=== PATIENT | female | born 1975 | race Caucasian/White ===

== ENCOUNTER 2020-06-25 12:24 | Outpatient (REF) | payer OTHER, SELFPAY ==
[2020-06-25 14:00] LABS: COVID-19 Test Negative (Negative); IDNOW Serial# 55D5AD1C
== END 2020-06-25 12:25 | disposition home or self-care (01) ==
LOC: HO.EMPCOV 12:24
PROVIDERS: Visit Provider Internal Medicine
DX: Z20.828 Contact with and (suspected) exposure to other viral communicable diseases (principal)
CPT/HCPCS: 87635; C9803

== ENCOUNTER 2020-07-24 14:32 | Outpatient (REF) | payer OTHER, SELFPAY ==
--- NOTE | 2020-07-24 14:38 | XR_ITS ---
EXAMINATION: CR X-RAY LUMBOSACRAL SPINE 3 VIEW CLINICAL INFORMATION: Low back pain. COMPARISON: None TECHNIQUE: 3 views each of the lumbar and sacrococcygeal spine were obtained. FINDINGS: There is normal lumbar lordosis and spinal alignment. Mild disc space narrowing is seen at L4-L5 and L5-S1. There is normal sacrococcygeal curvature. No acute fracture is seen. The soft tissues are unremarkable. Surgical clips overlie the upper abdomen. XR/XR lumbar spine 2-3V IMPRESSION: L4-L5 and L5-S1 mild disc space narrowing without acute abnormality.
--- NOTE | 2020-07-24 14:38 | XR_ITS ---
EXAMINATION: CR X-RAY LUMBOSACRAL SPINE 3 VIEW CLINICAL INFORMATION: Low back pain. COMPARISON: None TECHNIQUE: 3 views each of the lumbar and sacrococcygeal spine were obtained. FINDINGS: There is normal lumbar lordosis and spinal alignment. Mild disc space narrowing is seen at L4-L5 and L5-S1. There is normal sacrococcygeal curvature. No acute fracture is seen. The soft tissues are unremarkable. Surgical clips overlie the upper abdomen. XR/XR sacrum coccyx min 2V IMPRESSION: L4-L5 and L5-S1 mild disc space narrowing without acute abnormality.
== END 2020-07-24 14:33 | disposition home or self-care (01) ==
LOC: HO.HMGCX 14:32
PROVIDERS: PCP Nurse Practitioner Family; Visit Provider Nurse Practitioner Family
DX: M53.3 Sacrococcygeal disorders, not elsewhere classified (principal); M46.1 Sacroiliitis, not elsewhere classified; M54.5 Low back pain; Z91.81 History of falling
CPT/HCPCS: 72100; 72220

== ENCOUNTER → 2020-08-10 08:01 | Outpatient (BNVA) | payer OTHER, SELFPAY | PROVIDERS: PCP Nurse Practitioner Family; Visit Provider Advanced Practice Midwife | DX: Z76.89 Persons encountering health services in other specified circumstances (principal) ==

== ENCOUNTER 2020-11-05 15:34 | Emergency (ER) | payer OTHER, SELFPAY ==
--- NOTE | ~2020-11-05 | CT_ITS ---
EXAMINATION: CT MASTOID AREA CLINICAL INFORMATION: Left-sided posterior pain COMPARISON: None TECHNIQUE: 3 mm thin axial and reformatted 1.5 mm thin sagittal and coronal images of mastoid sinuses were obtained. DLP 164. FINDINGS: The mastoid sinuses are well-aerated and clear. There is small radiodense bone in the left posterior mastoid sinus, question 2 mm small osteoid osteoma There is normal symmetry of bilateral middle ears with intact middle ear ossicles and a intact scutum. The tympanic membrane are bilaterally intact. There is normal symmetry of bilateral internal auditory canal, semicircular canals and the cochlea. There is no sclerosis or osteopenia involving the internal ear. Bilateral external auditory canal is widely patent as well no soft tissue mass seen. Bilateral TM joints are symmetrical and normal. However there is subchondral cystic changes along the right mandibular condyle likely early degenerative changes. Visualized bilateral optic globes, optic nerve and the bony orbits are intact. The paranasal sinuses are well-aerated and clear. 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
[2020-11-05 18:07] VITALS: BP 144/99; PULSE 75; RESP 17; TEMP 36.6; O2SAT 100; BMI 29.0
[2020-11-05] MEDS: Cyclobenzaprine HCl 10 MG TABLET PO (18:42)
[2020-11-05] MEDS: Lidocaine 4 % Patch ADH..PATCH 1 PATCH TRANSDERMA (18:44)
[2020-11-05 19:01] LABS: MANUAL DIFF FLAG NO
[2020-11-05] MEDS: Ketorolac Tromethamine 30 MG/ML VIAL IVPUSH (19:05)
[2020-11-05 19:12] LABS: Basophils Percent Auto 0.2 % (0-2); Hematocrit 42.6 % (37-47); Hemoglobin 14.4 g/dl (12.0-16.0); Imm Gran Abs Auto 0.02 X10*3/uL (0.00-0.03); Imm Gran Pct Auto 0.3 % (0.0-0.4); Lymphocytes Absolute Auto 1.1 X10*3/uL (1.2-4.9); Lymphocytes Percent Auto 16.7 % (20-40); Mean Corpuscular HGB Conc 33.8 g/dl (31.0-35.0); Mean Corpuscular Volume 91.6 fL (80-98); Mean Platelet Volume 10.1 fL (9.4-12.3); Monocytes Absolute Auto 0.4 X10*3/uL (0.1-1.2); Monocytes Percent Auto 5.7 % (2-11); Neutrophils Absolute Auto 4.9 X10*3/uL (2.0-8.3); Neutrophils Percent Auto 77.1 % (45-73); Platelet Count 249 X10*3/uL (160-400); Red Blood Count 4.65 X10*6/uL (4.20-5.50); Red Cell Distribution Width 11.8 % (11.0-16.0); White Blood Count 6.3 X10*3/uL (4.8-10.8)
[2020-11-05 19:28] LABS: C Reactive Protein 0.12 mg/dL (< or = 0.50)
[2020-11-05 19:29] LABS: Alanine Aminotransferase 18 U/L (0-31); Albumin Level 4.5 g/dL (3.5-5.0); Alkaline Phosphatase 59 U/L (39-117); Anion Gap 15 (12-20); Aspartate Amino Transferase 21 U/L (5-31); Bilirubin Total 0.6 mg/dL (0.0-1.0); Blood Urea Nitrogen 14 mg/dL (9-16); Calcium 9.9 mg/dL (8.4-10.2); Carbon Dioxide 27 mmol/L (22-29); Chloride 104 mmol/L (96-108); Creatinine Clr Calc Pharmacy 115.1; Estimated Glomerular Filt Rate > 60; Glucose Random 105 mg/dL (60-115); Potassium 4.1 mmol/L (3.3-5.1); Sodium 142 mmol/L (135-145); Total Protein 7.5 g/dL (6.5-8.0)
--- NOTE | 2020-11-05 19:50 | ED_ITS ---
HPI - General Adult General Chief complaint: General Medical Stated complaint: ?Ear infection Time Seen by Provider: 11/05/20 18:09 Source: patient Mode of arrival: ambulatory Limitations: no limitations History of Present Illness HPI narrative: Continued left ear pain treated for otitis externa was given doxycycline and ear drops as well as prednisone. States continued to have pain in the left ear some on the left side neck as well. States the ear was previously swollen and red however is not anymore and had di scharge previously which she no longer has. Onset (ago): day(s) Radiation: non-radiation Severity: moderate Quality: aching Pain Consistency: constant Relieving factors: none Exacerbating factors: none Associated symptoms: denies other symptoms Treatments prior to arrival: other (Initially had doxycycline which was switched to azithromycin she is on day 3 of this) Related Data Previous Rx's Medication Instructions Recorded atorvastatin 10 mg tablet 10 mg PO DAILY 90 Days #90 tab 05/18/20 omeprazole 20 mg capsule,delayed 20 mg PO DAILY 90 Days #90 cap 06/04/20 release cholestyramine-aspartame 4 gram 4 g PO DAILY 30 Days #231 g 06/26/20 oral powder azithromycin 250 mg tablet 250 mg PO .COMPLEX 5 Days #6 tab 06/27/20 cyclobenzaprine 10 mg tablet 10 mg PO BID PRN 7 Days #14 tab 07/24/20 cholecalciferol (vitamin D3) 50 50 mcg PO DAILY #60 tab 08/03/20 mcg (2,000 unit) tablet sumatriptan succinate 4 mg/0.5 mL 4 mg SUBCUT BID PRN 30 Days #2 ml 08/08/20 subcutaneous pen injector cholestyramine-aspartame 4 gram 1 ea PO DAILY #60 packet 08/22/20 oral powder for susp in a packet doxycycline hyclate 100 mg capsule 100 mg PO BID 7 Days #14 cap 11/01/20 ofloxacin 0.3 % ear drops 10 drp OTIC (EARS) DAILY 7 Days 11/01/20 #10 ml prednisone 20 mg tablet 40 mg PO DAILY 5 Days #10 tab 11/01/20 azithromycin 250 mg tablet See Rx Instructions PO .COMPLEX #6 11/03/20 tab cyclobenzaprine 5 mg PO TID PRN #14 tab 11/05/20 ibuprofen 800 mg PO Q8H PRN #30 tab 04/12/21 Allergies Allergy/AdvReac Type Severity Reaction Status Date / Time caffeine [From CAFERGOT] Allergy Unknown VOMITING Verified 11/05/20 18:41 cetirizine [From ZYRTEC] AdvReac Unknown RAGE Verified 11/05/20 18:41 ergotamine [Cafergot] AdvReac Unknown nausea and Verified 11/05/20 18:41 vomiting meperidine [Demerol] AdvReac Unknown nausea and Verified 11/05/20 18:41 vomiting From CAFERGOT Allergy Unknown VOMITING Uncoded 04/12/20 15:02 From DEMEROL Allergy Unknown VOMITING Uncoded 04/12/20 15:02 Review of Systems Review of Systems: Constitutional: No Weight loss, No Fever, No Chills, No Night Sweats, No Fatigue, No Malaise ENT/Mouth: No Hearing loss, + Ear Pain, No Nasal Congestion, No Sinus Pain, No Hoarseness, No sore throat, No Rhinorrhea, No Swallowing Difficulty Eyes: No Eye Pain, No Swelling, No Redness, No Foreign Body, No Discharge, No Vision Changes Cardiovascular: No Chest Pain, No SOB, No Dyspnea on Exertion, No Orthopnea, No Edema, No Palpitations Respiratory: No Cough, No Sputum, No Wheezing, No Dyspnea Gastrointestinal: No Nausea, No Vomiting, No Diarrhea, No Constipation, No abdominal Pain, No Hematochezia, No Melena Genitourinary: No Dysuria, No Urinary Frequency, No Hematuria, No Urinary Incontinence, No Urgency, No Flank Pain, No Urinary Flow Changes, No Hesitancy Musculoskeletal: No joint pain, No Myalgias, No Joint Swelling Skin: No Skin Lesions, No rash Neuro: No Weakness, No Numbness, No Paresthesias, No Loss of Consciousness, No Dizziness, No Headache Psych: No Anxiety/Panic, No Depression, No SI/HI/AH/VH, No Social Issues Heme/Lymph: No Bruising, No Bleeding,No Lymphadenopathy Endocrine: No Polyuria, No Polydipsia, No Temperature Intolerance Yes all other systems are reviewed and are negative [facility] Past Medical History Medical History Hx of migraine headaches Surgical History H/O eye surgery History of endometrial ablation History of gastric surgery History of mandibular surgery History of placement of ear tubes Hx of adenoidectomy Hx of cholecystectomy Hx of tonsillectomy Family History Family History Father Non-Hodgkin lymphoma CVD (cardiovascular disease) Mother Alzheimer disease Sister History of breast cancer Social History Social History Alcohol intake: current Alcohol intake frequency: holidays/special occasions only Smoking Status: Never smoker Advance Directives: No Advance Directives Information Provided: No Sexual orientation: Straight/Heterosexual Physical Exam Vital Signs: Vital Signs: Last Vital Signs Temp 97.7 F 11/05/20 20:47 Pulse 63 11/05/20 20:47 Resp 16 11/05/20 20:47 BP 130/71 11/05/20 20:47 Pulse Ox 100 11/05/20 20:47 Body Mass Index 29.0 Reviewed Const: General: cooperative and healthy appearing; No acute distress or intoxicated appearing Nutritional Appearance: average body habitus Orientation/consciousness: patient oriented x3 HENMT: Head: Yes normal to inspection Ears: hearing grossly normal bilaterally, external ears normal, TM's normal bilaterally and mastoid abnormal (Very slight in prevention of the left mastoid, no rash or erythema) General nose exam: Normal external nose present Eyes: General: appearance normal, both eyes and all related structures Visual Armas: normal visual armas by confrontation Neck: Neck: Yes normal visual inspection, No positive Brudzinski's sign, No positive Kernig's sign and Yes tender (She has point tenderness over the paraspinous muscle cervical region.) Thyroid: Thyroid normal Chest: Chest palpation & inspection: normal inspection of the chest Resp: Effort & Inspection: normal respiratory effort Auscultation: clear to auscultation bilaterally Cardio: Jugular venous distension: no JVD Rhythm: regular rhythm Heart sounds: S1 normal heart sound present and S2 normal heart sound present GI: Inspection: Yes normal to inspection Percussion: Yes normal to percussion Auscultation: normal bowel sounds : General: Yes no CVA tenderness Back/Spine/Pelvis: Back: no CVA tenderness Skin: General skin exam: no rashes or lesions noted Neuro: General: patient oriented x3 Extrem: General: Yes normal to inspection Course Course Course Narrative: Pain seems more musculoskeletal in etiology given the recent treatment of otitis externa and slight tender to palpation over the mastoid ICA imaging was obtained and there is no mastoiditis. Labs overall reassuring., CRP negative, ESR negative. Will discharge home with muscle relaxant and NSAID with clear return follow-up precautions. Patient verbalized standing stable for discharge. 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 She will follow-up on outpatient basis for this Medical Decision Making Lab Data Result diagrams: 11/05/20 18:55 11/05/20 18:55 Labs: Lab Results 11/05/20 11/05/20 11/05/20 Range/Units 18:55 18:55 18:55 WBC 6.3 (4.8-10.8) X10*3/uL RBC 4.65 (4.20-5.50) X10*6/uL Hgb 14.4 (12.0-16.0) g/dl Hct 42.6 (37-47) % MCV 91.6 (80-98) fL MCH 31.0 (27.0-33.0) pg MCHC 33.8 (31.0-35.0) g/dl RDW 11.8 (11.0-16.0) % Plt Count 249 (160-400) X10*3/uL MPV 10.1 (9.4-12.3) fL Immature Gran % (Auto) 0.3 (0.0-0.4) % Neut % (Auto) 77.1 H (45-73) % Lymph % (Auto) 16.7 L (20-40) % [place] % (Auto) 5.7 (2-11) % Eos % (Auto) 0.0 (0-4) % Baso % (Auto) 0.2 (0-2) % Lymph # (Auto) 1.1 L (1.2-4.9) X10*3/uL [place] # (Auto) 0.4 (0.1-1.2) X10*3/uL Eos # (Auto) 0.0 (0.0-0.4) X10*3/uL Baso # (Auto) 0.0 (0.0-0.2) X10*3/uL Abs Immat Gran (auto) 0.02 (0.00-0.03) X10*3/uL Absolute Neuts (auto) 4.9 (2.0-8.3) X10*3/uL Absolute Nucleated RBC 0.000 (0.0-0.012) X10*3/uL Nucleated RBC % (auto) 0.0 (0.0-0.2) /100WBC ESR 6 (0-20) MM/HR Sodium (135-145) mmol/L Potassium (3.3-5.1) mmol/L Chloride (96-108) mmol/L Carbon Dioxide (22-29) mmol/L Anion Gap (12-20) BUN (9-16) mg/dL Creatinine (0.5-1.4) mg/dL Estim Creat Clear Calc Estimated GFR Random Glucose (60-115) mg/dL Calcium (8.4-10.2) mg/dL Total Bilirubin (0.0-1.0) mg/dL AST (5-31) U/L ALT (0-31) U/L Alkaline Phosphatase (39-117) U/L C-Reactive Protein 0.12 (< or = 0.50) mg/dL Total Protein (6.5-8.0) g/dL Albumin (3.5-5.0) g/dL COVID-19 (GEMMA) (Negative) COVID-19 Clin Com 11/05/20 11/05/20 Range/Units 18:55 20:45 WBC (4.8-10.8) X10*3/uL RBC (4.20-5.50) X10*6/uL Hgb (12.0-16.0) g/dl Hct (37-47) % MCV (80-98) fL MCH (27.0-33.0) pg MCHC (31.0-35.0) g/dl RDW (11.0-16.0) % Plt Count (160-400) X10*3/uL MPV (9.4-12.3) fL Immature Gran % (Auto) (0.0-0.4) % Neut % (Auto) (45-73) % Lymph % (Auto) (20-40) % [place] % (Auto) (2-11) % Eos % (Auto) (0-4) % Baso % (Auto) (0-2) % Lymph # (Auto) (1.2-4.9) X10*3/uL [place] # (Auto) (0.1-1.2) X10*3/uL Eos # (Auto) (0.0-0.4) X10*3/uL Baso # (Auto) (0.0-0.2) X10*3/uL Abs Immat Gran (auto) (0.00-0.03) X10*3/uL Absolute Neuts (auto) (2.0-8.3) X10*3/uL Absolute Nucleated RBC (0.0-0.012) X10*3/uL Nucleated RBC % (auto) (0.0-0.2) /100WBC ESR (0-20) MM/HR Sodium 142 (135-145) mmol/L Potassium 4.1 (3.3-5.1) mmol/L Chloride 104 (96-108) mmol/L Carbon Dioxide 27 (22-29) mmol/L Anion Gap 15 (12-20) BUN 14 (9-16) mg/dL Creatinine 0.68 (0.5-1.4) mg/dL Estim Creat Clear Calc 115.1 Estimated GFR > 60 Random Glucose 105 (60-115) mg/dL Calcium 9.9 (8.4-10.2) mg/dL Total Bilirubin 0.6 (0.0-1.0) mg/dL AST 21 (5-31) U/L ALT 18 (0-31) U/L Alkaline Phosphatase 59 (39-117) U/L C-Reactive Protein (< or = 0.50) mg/dL Total Protein 7.5 (6.5-8.0) g/dL Albumin 4.5 (3.5-5.0) g/dL COVID-19 (GEMMA) Negative (Negative) COVID-19 Clin Com See Note Imaging Data Head/mastoid CT: Radiologist's impression: [address] [id number] Scan ReportSigned Patient: Geena Malone LMR#: [id number]: [id number]:[id number]/Sex: 44 / FADM Date: 11/05/20Loc: HO.EDAttending Dr: Ordering Physician: Robin Smalls NP Date of Service: 11/05/20 Procedure(s): CT mastoid Accession Number(s): [id number] cc: 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 DLP 164. FINDINGS: The mastoid sinuses are well-aerated and clear. There is small radiodense bone in the left posterior mastoid sinus, question 2 mm small osteoid osteoma There is normal symmetry of bilateral middle ears with intact middle ear ossicles and a intact scutum. The tympanic membrane are bilaterally intact. There is normal symmetry of bilateral internal auditory canal, semicircular canals and the cochlea. There is no sclerosis or osteopenia involving the internal ear. Bilateral external auditory canal is widely patent as well no soft tissue mass seen. Bilateral TM joints are symmetrical and normal. However there is subchondral cystic changes along the right mandibular condyle likely early degenerative changes. Visualized bilateral optic globes, optic nerve and the bony orbits are intact. The paranasal sinuses are well-aerated and clear. 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 Dictated By:NIMA HAMMOND MDSigned By:<Electronically signed by NIMA HAMMOND MD in OV>11/05/20 2100 DD/ 1809TD/TT: Relay Record Clerk: [facility] [place], [place] Discharge Plan Discharge Clinical Impression: Acute otalgia Patient Disposition: Home, Self-Care Instructions: Earache (ED) Additional Instructions: The pain your likely having is musculoskeletal related There is no signs of infection The previous ear infection that had now resolved you could certainly could complete the course of the azithromycin antibiotic Warm compresses Anti-inflammatory medication as prescribed Muscle relaxants prescribed Return if any concerns including worsening headache, neck pain, fever, chest pain, shortness of breath or any other concerning symptoms Otherwise a primary care doctor as discussed Thank you Prescriptions: New ibuprofen 800 mg tablet 800 mg PO Q8H PRN (Reason: pain) Qty: 30 RF: 0 cyclobenzaprine 5 mg tablet 5 mg PO TID PRN (Reason: muscle spasm) Qty: 14 RF: 0 No Action atorvastatin 10 mg tablet 10 mg PO DAILY 90 Days Qty: 90 RF: 2 omeprazole 20 mg capsule,delayed release(DR/EC) 20 mg PO DAILY 90 Days Qty: 90 RF: 2 Prevalite 4 gram powder 4 g PO DAILY 30 Days Qty: 231 RF: 8 azithromycin 250 mg tablet 250 mg PO .COMPLEX 5 Days Qty: 6 RF: 0 cholecalciferol (vitamin D3) 50 mcg (2,000 unit) tablet 50 mcg PO DAILY Qty: 60 RF: 3 sumatriptan succinate 4 mg/0.5 mL pen injector 4 mg subcut BID PRN (Reason: migraine headache) 30 Days Qty: 2 RF: 3 Prevalite 4 gram powder in packet 1 ea PO DAILY Qty: 60 RF: 6 azithromycin 250 mg tablet See Rx Instructions PO .COMPLEX Qty: 6 RF: 0 cyclobenzaprine 10 mg tablet 10 mg PO BID PRN (Reason: muscle spasm) 7 Days Qty: 14 RF: 0 doxycycline hyclate 100 mg capsule 100 mg PO BID 7 Days Qty: 14 RF: 0 prednisone 20 mg tablet 40 mg PO DAILY 5 Days Qty: 10 RF: 0 ofloxacin 0.3 % drops 10 drp otic (ears) DAILY 7 Days Qty: 10 RF: 0
[2020-11-05 19:57] LABS: Erythrocyte Sedimentation Rate 6 MM/HR (0-20)
[2020-11-05] MEDS: oxyCODONE HCl Immed Release 5 MG TABLET PO (20:43)
[2020-11-05 20:47] VITALS: BP 130/71; PULSE 63; RESP 16; TEMP 36.5; O2SAT 100
[2020-11-05 21:11] LABS: COVID-19 Test Negative (Negative); IDNOW Serial# 9DD0AD1C
== END 2020-11-05 22:33 | disposition home or self-care (01) ==
PROVIDERS: Nurse Practitioner Primary Care; Emergency Provider Emergency Medicine; PCP Nurse Practitioner Family
DX: H92.02 Otalgia, left ear (principal); H60.92 Unspecified otitis externa, left ear; Z20.822 Contact with and (suspected) exposure to COVID-19
CPT/HCPCS: 36415; 70481; 80053; 85025; 85652; 86140; 87635; 96372; 96374; 96375; 99284; J1885

== ENCOUNTER 2020-11-23 07:23 | Outpatient (REF) | payer OTHER, SELFPAY ==
--- NOTE | ~2020-11-23 | MM_ITS ---
EXAMINATION: MM SCREENING DIGITAL BREAST TOMOSYNTHESIS, BILATERAL CLINICAL INFORMATION: Screening. Asymptomatic. The lifetime risk of breast cancer based on the Tyrer-Cuzick Model is 8%. COMPARISON: Mammography: 09/08/2019, 09/02/2018, 12/08/2016 TECHNIQUE: Digital breast tomosynthesis is performed in both the craniocaudal and mediolateral oblique views along with computer-aided detection (CAD). Synthesized 2D images are generated from the tomosynthesis. FINDINGS: There are scattered areas of fibroglandular density (ACR BI-RADS breast composition Category b). There are no significant masses, abnormal calcifications, or other abnormalities. Parenchymal pattern is similar to prior exams. The axilla and skin contours are unremarkable. MM/MM tomosynthesis screening BI IMPRESSION: No mammographic evidence of malignancy. ASSESSMENT: BI-RADS 1: Negative RECOMMENDATION: Routine annual mammography screening. This patient's information was entered into a reminder system with a target due date for their next mammogram.
== END 2020-11-23 07:24 | disposition home or self-care (01) ==
LOC: HO.MAMMO 07:23
PROVIDERS: PCP Nurse Practitioner Family; Visit Provider Nurse Practitioner Family
DX: Z12.31 Encounter for screening mammogram for malignant neoplasm of breast (principal)
CPT/HCPCS: 77063; 77067

== ENCOUNTER 2021-03-29 12:01 | Outpatient (REF) | payer OTHER, SELFPAY ==
--- NOTE | ~2021-03-29 | XR_ITS ---
EXAMINATION: XR CERVICAL SPINE CLINICAL INFORMATION: Neck pain COMPARISON: None TECHNIQUE: 3 views of the cervical spine were obtained. FINDINGS: Bone alignment is normal. No fracture or dislocation is seen. Disc spaces are normal. Prevertebral soft tissues are normal. XR/XR cervical spine 3V IMPRESSION: Unremarkable examination.
== END 2021-03-29 12:02 | disposition home or self-care (01) ==
LOC: HO.HMGCX 12:01
PROVIDERS: PCP Nurse Practitioner Family; Visit Provider Nurse Practitioner Family
DX: Z13.89 Encounter for screening for other disorder (principal)
CPT/HCPCS: 72040

== ENCOUNTER 2021-06-25 14:00 | Outpatient (RCR) | payer OTHER, SELFPAY ==
--- NOTE | 2021-04-02 07:23 | MHC.PT.EP ---
[facility] [place] Office [place] Office [place] Office [address] Osman Romeo [address] [phone] F: [phone] F: [phone] F: [phone] F: [phone] Physical Therapy Plan of Care Date of Evaluation: Date of Surgery: n/a Diagnosis: cervicalgia, b/l shoulder pain Assessment: Patient is a 45 year old R handed female who presents with s/s consistent with neck and shoulder pain. 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 Patient past medical history is fairly unremarkable but does include jaw surgery 30 years ago. Current impairments include pain, posture. ROM, strength, activity tolerance and functional mobility. Functional limitations include decreased ability to sit, sleep, lift, carry, and perform weight bearing activities.. Patient is motivated with good rehab potential. Skilled PT will address impairments and functional limitations in order to achieve goals. Frequency and Duration: The patient will be seen 2x/week for 5 weeks Short Term Goals: I with HEP - 2 weeks Reduce TTP and pain with ADLs , 2/10 max - 3 weeks min pec tightness - 3 weeks [facility] Goals: pain free work day, able to sleep through night without n/t - 5 weeks TTP absent in t-spine, no LS/UT TP - 5 weeks NPDI 12% or less - 5 weeks Treatment Plan: Modalities to reduce pain, spasms and effusion. Manual therapy to restore motion and function. Therapeutic exercise to improve strength and flexibility. Neuromuscular re-education for posture and balance. Therapeutic activities to return to functional activities of daily living. Electronically signed by: Todd Daniel, PT Please sign and return to therapist. Thank you for your referral.
--- NOTE | 2021-08-16 08:05 | MHC.PT.DC ---
[facility] [place] [facility] [place] Office [place] Office [address] Osman Romeo [address] [phone] F: [phone] F: [phone] F: [phone] F: [phone] Physical Therapy Discharge Report Diagnosis: cervicalgia, b/l shoulder pain Date of Surgery: n/a Date of Evaluation: 03/28/21 Date of Discharge: 06/27/21 Treatments to Date: 18 Cancellations to Date: 0 No Shows to Date: 0 Discharge Status: Discharge Summary: Pt has good understanding of impairments and limitations and how to proceed with HEP. She has improved postural awareness but still with daily discomfort. We will d/c to HEP at this time. Electronically signed by: Todd Daniel, PT Please sign and return to therapist. Thank you for your referral.
== END 2021-06-27 08:00 | disposition home or self-care (01) ==
LOC: HO.PTCHIC 14:00
PROVIDERS: PCP Nurse Practitioner Family; Visit Provider Nurse Practitioner Family
DX: M54.2 Cervicalgia (principal); M25.511 Pain in right shoulder; M25.512 Pain in left shoulder
CPT/HCPCS: 97110; 97140; 97161

== ENCOUNTER 2021-08-16 08:24 | Outpatient (REF) | payer OTHER, SELFPAY ==
[2021-08-20 12:56] LABS: HPV mRNA E6/E7 rflx Not Detected (Not Detected)
== END 2021-08-16 08:25 | disposition home or self-care (01) ==
LOC: HO.LAB 08:24
PROVIDERS: PCP Nurse Practitioner Family; Visit Provider Advanced Practice Midwife
DX: Z01.419 Encounter for gynecological examination (general) (routine) without abnormal findings (principal); Z11.51 Encounter for screening for human papillomavirus (HPV)
CPT/HCPCS: 87624; 88142

== ENCOUNTER 2021-09-05 13:00 | Outpatient (REF) | payer OTHER, SELFPAY ==
--- NOTE | ~2021-09-05 | XR_ITS ---
EXAMINATION: XR KNEE, LEFT CLINICAL INFORMATION: Pain in the left knee COMPARISON: None TECHNIQUE: Four views of the left knee. FINDINGS: No fracture or subluxation. Compartmental joint spaces are maintained. No joint effusion. The soft tissues are unremarkable. XR/XR knee LT 4V IMPRESSION: Normal left knee.
== END 2021-09-05 13:01 | disposition home or self-care (01) ==
LOC: HO.HMGCX 13:00
PROVIDERS: PCP Nurse Practitioner Family; Visit Provider Nurse Practitioner Family
DX: M25.562 Pain in left knee (principal)
CPT/HCPCS: 73564

== ENCOUNTER 2021-09-23 13:40 | Outpatient (REF) | payer OTHER, SELFPAY ==
--- NOTE | ~2021-09-23 | XR_ITS ---
EXAMINATION: XR ANKLE, LEFT CLINICAL INFORMATION: Pain. COMPARISON: None TECHNIQUE: AP, lateral, and mortise views of the left ankle. FINDINGS: There is no visible acute fracture, dislocation or subluxation seen. The ankle mortise and subtalar joints appear normal. There is a small calcaneal heel enthesophyte. The soft tissues are normal. XR/XR ankle LT min 3V IMPRESSION: Small calcaneal heel enthesophyte. No visible acute fracture or dislocation seen.
== END 2021-09-23 13:41 | disposition home or self-care (01) ==
LOC: HO.HMGCX 13:40
PROVIDERS: PCP Nurse Practitioner Family; Visit Provider Nurse Practitioner Family
DX: M25.572 Pain in left ankle and joints of left foot (principal)
CPT/HCPCS: 73610

== ENCOUNTER 2021-10-16 18:30 | Outpatient (REF) | payer OTHER, SELFPAY ==
--- NOTE | ~2021-10-16 | MR_ITS ---
EXAMINATION: MR KNEE WITHOUT CONTRAST, LEFT CLINICAL INFORMATION: Sprain of posterior cruciate ligament COMPARISON: X-ray the left knee August 2021 TECHNIQUE: MRI of the knee without contrast was performed using routine sequences on a high-field scanner. FINDINGS: MENISCI: Medial Meniscus: Intact Lateral Meniscus: Intact LIGAMENTS: Cruciate: Intact Collateral: Intact EXTENSOR MECHANISM: Intact ARTICULAR CARTILAGE/BONE: Patellofemoral Compartment: There is some minimal superficial fissuring and cartilage heterogeneity throughout the patella. The trochlear cartilage is normal. Overall mild patellofemoral arthrosis Medial Compartment: Normal Lateral Compartment: Normal JOINT FLUID AND BURSAE: Normal MR/MR knee LT wo con IMPRESSION: Mild patellofemoral arthrosis Posterior cruciate ligament intact.
--- NOTE | ~2021-10-16 | MR_ITS ---
EXAMINATION: MRI ANKLE WITHOUT CONTRAST, LEFT CLINICAL INFORMATION: Pain. Patient reports injury 08/26/2021, medial and lateral pain. COMPARISON: X-ray 09/23/2021 TECHNIQUE: MRI of the ankle without contrast is performed in a 1.5 Nidhi high-field scanner. FINDINGS: BONE/JOINTS: No evidence of acute fracture. No suspicious marrow signal changes. Small cyst in the posterior calcaneus near the Achilles tendon insertion site. No talar dome osteochondral lesion. MUSCLES/TENDONS: Medial flexor, peroneal, extensor tendons are intact. LIGAMENTS: Sprain of the proximal ATFL. Posterior talofibular, tibiofibular, calcaneofibular ligaments intact. Mild sprain anterior deep fibers deltoid ligament. ACHILLES TENDON: Intact. PLANTAR FASCIA: Intact. SINUS TARSI: Normal signal. TARSAL TUNNEL : Unremarkable MR/MR ankle LT wo con IMPRESSION: 1. No evidence of acute osseous abnormality. 2. Sprain of the proximal anterior talofibular ligament. Mild sprain anterior deep fibers deltoid ligament.
== END 2021-10-16 18:31 | disposition home or self-care (01) ==
LOC: HO.MRI 18:30
PROVIDERS: Visit Provider Nurse Practitioner Family
DX: M25.572 Pain in left ankle and joints of left foot (principal); M25.562 Pain in left knee; S83.529A Sprain of posterior cruciate ligament of unspecified knee, initial encounter
CPT/HCPCS: 73721

== ENCOUNTER 2021-11-19 14:00 | Outpatient (RCR) | payer OTHER, SELFPAY ==
--- NOTE | 2021-10-08 14:18 | MHC.PT.EP ---
[facility] [place] Office [place] Office [place] Office [address] Osman Romeo [address] [phone] F: [phone] F: [phone] F: [phone] F: [phone] Physical Therapy Plan of Care Date of Evaluation: Date of Surgery: Diagnosis: This is a 45 yo female presenting to skilled PT with a script for pain in L knee. Assessment: This is a 45 yo female presenting to skilled PT with a script for pain in L knee. Geena reports tripping in her kitchen on 08/26. When she tripped she fell directly onto her patella tendon (tile floor). She also reports ankle symptoms which may have been landing in PF and INV. Today pain is located at the L fib head, patella tendon (both of which are tender to touch), post knee (tight), and at the lateral ankle (which has wrapped around the lateral malloli but has progressed medially and anteriorly as well). She also reports an incident when stepping out of bed where she then heard a pop in her ankle and had bruising medially. Her ankle symptoms are burning and constant in nature. She also reports some instability in the knee as well. Assessment reveals pain that ranges up to an 8/10, pain is constant and burning at the ankle. She demos decreased hamstring and ankle ROM, decreased ankle strength, impaired gait pattern as noted in eval, impaired joint mobility at fibular head, forefoot and lateral ankle, TTP throughout patella tendon, fibular head (pain improved with posterior glide) and hamstrings as well as gross functional decline with ambulating, stairs, standing and pain tolerance. She is a good candidate for skilled PT 2x/wk for 5 wks, she is getting an MRI of the knee but would benefit from imaging of the ankle due to pain and injury date. Frequency and Duration: The patient will be seen 2x/wk for 5wks Short Term Goals: I in HEP Improve nonpainful ankle ROM by 10 degs [facility] Goals: Improve ankle strength in all directions to at least 4/5 Normalize gait pattern without compensatory movements Report no more than 2/10 pain at the worst with pain no longer constant Normalize ankle ROM Treatment Plan: Modalities to reduce pain, spasms and effusion. Manual therapy to restore motion and function. Therapeutic exercise to improve strength and flexibility. Neuromuscular re-education for posture and balance. Therapeutic activities to return to functional activities of daily living. Electronically signed by: Clarisse Sool PT Please sign and return to therapist. Thank you for your referral.
--- NOTE | 2022-01-03 07:49 | MHC.PT.DC ---
[facility] [place] Office [place] Office [place] Office [address] Osman Romeo [address] [phone] F: [phone] F: [phone] F: [phone] F: [phone] Physical Therapy Discharge Report Diagnosis: This is a 45 yo female presenting to skilled PT with a script for pain in L knee. Date of Surgery: Date of Evaluation: 10/08/21 Date of Discharge: 01/03/22 Treatments to Date: 10 Cancellations to Date: 0 No Shows to Date: 0 Discharge Status: Achieved Goals Improved Function Independent with HEP Patient Elected to Stop Discharge Summary: Patient came to 10 visits. Within this time frame, gait improved, ROM improved as did strength. She was curing oven tender to palpate at fascia per last tx note but felt ready for DC and was I with HEP. She reported improved pain, joint mobility and function. She has met her goals and is ready for DC to HEP Electronically signed by: Clarisse Solo, PT Please sign and return to therapist. Thank you for your referral.
== END 2022-01-03 07:49 | disposition home or self-care (01) ==
LOC: HO.PTCHIC 14:00
PROVIDERS: PCP Nurse Practitioner Family; Visit Provider Nurse Practitioner Family
DX: M25.562 Pain in left knee (principal); M25.572 Pain in left ankle and joints of left foot; M70.52 Other bursitis of knee, left knee; S83.522D Sprain of posterior cruciate ligament of left knee, subsequent encounter
CPT/HCPCS: 97110; 97140; 97162

== ENCOUNTER 2021-12-10 08:29 | Outpatient (REF) | payer OTHER, SELFPAY ==
--- NOTE | ~2021-12-10 | XR_ITS ---
EXAMINATION: XR CHEST CLINICAL INFORMATION: Covid infection COMPARISON: Previous chest CT February 2020 and chest x-ray February 2020 TECHNIQUE: 2 views of the chest were obtained. FINDINGS: No significant abnormality is noted involving the heart, lungs, mediastinum, bony thorax or soft tissues. XR/XR chest 2V IMPRESSION: Unremarkable examination.
[2021-12-10 11:28] LABS: MANUAL DIFF FLAG NO
[2021-12-10 11:33] LABS: Basophils Percent Auto 0.8 % (0-2); Eosinophils Absolute Auto 0.1 X10*3/uL (0.0-0.4); Eosinophils Percent Auto 2.6 % (0-4); Hemoglobin 13.5 g/dl (12.0-16.0); Imm Gran Abs Auto 0.02 X10*3/uL (0.00-0.03); Imm Gran Pct Auto 0.4 % (0.0-0.4); Lymphocytes Absolute Auto 1.7 X10*3/uL (1.2-4.9); Lymphocytes Percent Auto 31.1 % (20-40); Mean Corpuscular HGB Conc 32.9 g/dl (31.0-35.0); Mean Corpuscular Hemoglobin 30.5 pg (27.0-33.0); Mean Corpuscular Volume 92.8 fL (80.0-98.0); Mean Platelet Volume 10.4 fL (9.4-12.3); Monocytes Absolute Auto 0.7 X10*3/uL (0.1-1.2); Monocytes Percent Auto 12.5 % (2-11); Neutrophils Absolute Auto 2.8 x10*3/uL (2.0-8.3); Neutrophils Percent Auto 52.6 % (45-73); Platelet Count 239 X10*3/uL (160-400); Red Blood Count 4.42 X10*6/uL (4.20-5.50); Red Cell Distribution Width 12.1 % (11.0-16.0); White Blood Count 5.3 X10*3/uL (4.8-10.8)
[2021-12-10 11:49] LABS: Alanine Aminotransferase 22 U/L (0-31); Alkaline Phosphatase 81 U/L (39-117); Anion Gap 13 (12-20); Aspartate Amino Transferase 25 U/L (5-31); Bilirubin Total 0.7 mg/dL (0.0-1.0); Blood Urea Nitrogen 11 mg/dL (9-16); Calcium 9.6 mg/dL (8.4-10.2); Carbon Dioxide 28 mmol/L (22-29); Chloride 104 mmol/L (96-108); Estimated Glomerular Filt Rate > 60; Glucose Random 91 mg/dL (60-115); Potassium 4.6 mmol/L (3.3-5.1); Sodium 140 mmol/L (135-145); Total Protein 7.1 g/dL (6.5-8.0)
[2021-12-10 12:13] LABS: TSH reflex Free T4 3.66 uIU/mL (0.32-4.0)
== END 2021-12-10 08:30 | disposition home or self-care (01) ==
LOC: HO.HMGCLDS 08:29
PROVIDERS: Visit Provider Nurse Practitioner Family
DX: U07.1 COVID-19 (principal)
CPT/HCPCS: 36415; 71046; 80053; 84443; 85025

== ENCOUNTER 2022-01-01 11:37 | Outpatient (REF) | payer OTHER, SELFPAY ==
--- NOTE | ~2022-01-01 | MM_ITS ---
EXAMINATION: MM SCREENING DIGITAL BREAST TOMOSYNTHESIS, BILATERAL CLINICAL INFORMATION: Screening. Asymptomatic. The lifetime risk of breast cancer based on the Tyrer-Cuzick Model is 12%. COMPARISON: Mammography: November 23, 2020 and studies dating back to December 08, 2016 TECHNIQUE: Digital breast tomosynthesis is performed in both the craniocaudal and mediolateral oblique views along with computer-aided detection (CAD). Synthesized 2D images are generated from the tomosynthesis. FINDINGS: There are scattered areas of fibroglandular density (ACR BI-RADS breast composition Category b). There are no significant masses, abnormal calcifications, or other abnormalities. MM/MM tomosynthesis screening BI IMPRESSION: There are no significant changes from prior study. ASSESSMENT: BI-RADS 1: Negative RECOMMENDATION: Routine annual mammography screening. This patient's information was entered into a reminder system with a target due date for their next mammogram.
== END 2022-01-01 11:38 | disposition home or self-care (01) ==
LOC: HO.MAMMO 11:37
PROVIDERS: Visit Provider Nurse Practitioner Family
DX: Z12.31 Encounter for screening mammogram for malignant neoplasm of breast (principal)
CPT/HCPCS: 77063; 77067

== ENCOUNTER 2022-03-20 06:49 | Outpatient (REF) | payer OTHER, SELFPAY ==
[2022-03-20 11:21] LABS: MANUAL DIFF FLAG NO
[2022-03-20 11:26] LABS: Basophils Percent Auto 0.8 % (0-2); Eosinophils Absolute Auto 0.1 X10*3/uL (0.0-0.4); Eosinophils Percent Auto 2.5 % (0-4); Hematocrit 40.1 % (37.0-47.0); Hemoglobin 13.1 g/dl (12.0-16.0); Imm Gran Abs Auto 0.01 X10*3/uL (0.00-0.03); Imm Gran Pct Auto 0.2 % (0.0-0.4); Lymphocytes Absolute Auto 1.6 X10*3/uL (1.2-4.9); Lymphocytes Percent Auto 33.8 % (20-40); Mean Corpuscular HGB Conc 32.7 g/dl (31.0-35.0); Mean Corpuscular Hemoglobin 30.6 pg (27.0-33.0); Mean Corpuscular Volume 93.7 fL (80.0-98.0); Mean Platelet Volume 10.5 fL (9.4-12.3); Monocytes Absolute Auto 0.7 X10*3/uL (0.1-1.2); Monocytes Percent Auto 13.9 % (2-11); Neutrophils Absolute Auto 2.3 x10*3/uL (2.0-8.3); Neutrophils Percent Auto 48.8 % (45-73); Platelet Count 217 X10*3/uL (160-400); Red Blood Count 4.28 X10*6/uL (4.20-5.50); Red Cell Distribution Width 12.3 % (11.0-16.0); White Blood Count 4.8 X10*3/uL (4.8-10.8)
[2022-03-20 12:06] LABS: Alanine Aminotransferase 26 U/L (0-31); Albumin Level 4.2 g/dL (3.5-5.0); Alkaline Phosphatase 73 U/L (39-117); Anion Gap 14 (12-20); Aspartate Amino Transferase 29 U/L (5-31); Bilirubin Total 0.6 mg/dL (0.0-1.0); Blood Urea Nitrogen 12 mg/dL (9-16); Calcium 9.2 mg/dL (8.4-10.2); Carbon Dioxide 29 mmol/L (22-29); Chloride 103 mmol/L (96-108); Cholesterol 279 mg/dL; Estimated Glomerular Filt Rate > 60; Glucose Fasting 85 mg/dL (60-99); HDL Cholesterol 94 mg/dL; LDL Cholesterol Calculated 165 mg/dl; Potassium 4.8 mmol/L (3.3-5.1); Sodium 141 mmol/L (135-145); TSH reflex Free T4 2.39 uIU/mL (0.32-4.0); Total Protein 7.1 g/dL (6.5-8.0); Triglycerides 102 mg/dL
[2022-03-20 13:46] LABS: Appearance Urine Clear; Color Urine Yellow; Glucose Urine UA Negative (Negative); Leukocyte Esterase Urine Negative (Negative); Nitrite Urine Negative (Negative); PH 5.5 (5.0-8.0); Specific Gravity - Urine 1.015 (1.005-1.025); Urine Blood Negative (Negative); Urine Ketones Negative (Negative); Urine Protein Negative (Neg-Trace)
== END 2022-03-20 06:50 | disposition home or self-care (01) ==
LOC: HO.HMGCLDS 06:49
PROVIDERS: PCP Nurse Practitioner Family; Visit Provider Nurse Practitioner Family
DX: Z00.00 Encounter for general adult medical examination without abnormal findings (principal)
CPT/HCPCS: 36415; 80053; 80061; 81003; 84443; 85025

== ENCOUNTER → 2022-08-22 08:08 | Outpatient (BNVA) | payer OTHER, SELFPAY | PROVIDERS: Visit Provider Advanced Practice Midwife | DX: Z13.89 Encounter for screening for other disorder (principal) ==

== ENCOUNTER 2023-02-20 07:38 | Outpatient (REF) | payer OTHER, SELFPAY ==
--- NOTE | ~2023-02-20 | MM_ITS ---
EXAMINATION: MM SCREENING DIGITAL BREAST TOMOSYNTHESIS, BILATERAL CLINICAL INFORMATION: Screening. Asymptomatic. The lifetime risk of breast cancer based on the Tyrer-Cuzick Model is 11%. COMPARISON: Mammography: 08/03/2021, and exams dating back to 2017. TECHNIQUE: Digital breast tomosynthesis is performed in both the craniocaudal and mediolateral oblique views along with computer-aided detection (CAD). Synthesized 2D images are generated from the tomosynthesis. FINDINGS: There are scattered areas of fibroglandular density (ACR BI-RADS breast composition Category b). There are no suspicious masses, suspicious grouped calcifications, or areas of architectural distortion. The parenchymal pattern is stable from prior exams. There are no skin or axillary abnormalities. MM/MM tomosynthesis screening BI IMPRESSION: No mammographic evidence of malignancy. ASSESSMENT: BI-RADS BI-RADS 1 - Negative RECOMMENDATION: Routine annual mammography screening. 1 year F/U This examination should not preclude the clinical evaluation of a suspicious palpable abnormality. This patient's information was entered into a reminder system with a target due date for their next mammogram.
== END 2023-02-20 07:39 | disposition home or self-care (01) ==
LOC: HO.MAMMO 07:38
PROVIDERS: PCP Nurse Practitioner Family; Visit Provider Nurse Practitioner Family
DX: Z12.31 Encounter for screening mammogram for malignant neoplasm of breast (principal)
CPT/HCPCS: 77063; 77067

== ENCOUNTER → 2023-02-20 07:45 | Outpatient (BNV) | payer OTHER, SELFPAY | PROVIDERS: PCP Nurse Practitioner Family; Visit Provider Radiology Diagnostic Radiology | DX: Z12.31 Encounter for screening mammogram for malignant neoplasm of breast (principal) | CPT/HCPCS: 77063; 77067 ==

== ENCOUNTER 2023-03-23 11:27 | Outpatient (AMB) | payer OTHER, SELFPAY ==
--- NOTE | 2023-03-23 11:41 | MHC.OFFWIV ---
Intake Vital Signs 03/23/23 11:50 Weight 225 lb BP 130/98 H Blood Pressure Location Lt brachial Position Sitting Pulse 88 Pulse Source Pulse Oximeter Temp 98.1 F Temp Source Oral Pulse Oximetry (%) 98 Oxygen Delivery Method Room Air Intake Visit Reasons: EST/chest/ cold [phone] Intake Note: Patient here for possible bronchitis or pneumonia. states shes had a cold about 1 week ago. Patient Tobacco Use Status: Former Tobacco user Quit Date: 20 years ago Allergies doxycycline Allergy (Mild, Verified 03/23/23 12:55) n/v caffeine [From CAFERGOT] Allergy (Unknown, Verified 03/23/23 12:55) VOMITING cetirizine [From ZYRTEC] Adverse Reaction (Unknown, Verified 03/23/23 12:55) RAGE ergotamine [Cafergot] Adverse Reaction (Unknown, Verified 03/23/23 12:55) nausea and vomiting meperidine [Demerol] Adverse Reaction (Unknown, Verified 03/23/23 12:55) nausea and vomiting From CAFERGOT Allergy (Unknown, Uncoded 03/23/23 12:55) VOMITING From DEMEROL Allergy (Unknown, Uncoded 03/23/23 12:55) VOMITING Do you need a note to return to daycare/school/sports/work: No HPI EST/chest/ cold [phone] HPI Details Patient presents for a sick visit. Reporting symptoms of sinus congestion, sore throat and difficulty swallowing. Low-grade fever. No family member is sick. No recent travel. Patient reports symptoms of malaise and fatigue. [facility] Medical History (Updated 03/23/23 @ 12:55 by Naveen Spencer MD) Hx of migraine headaches Physical exam Surgical History H/O eye surgery History of endometrial ablation History of gastric surgery History of mandibular surgery History of placement of ear tubes Hx of adenoidectomy Hx of cholecystectomy Hx of tonsillectomy Family History Father Non-Hodgkin lymphoma CVD (cardiovascular disease) Mother Alzheimer disease Sister History of breast cancer Paternal Grandfather Substance use disorder Paternal Uncle Substance use disorder Social History Household Members: Spouse Household Members Other:: son Housing: House Alcohol intake: current Alcohol intake frequency: holidays/special occasions only Patient Tobacco Use Status: Former Tobacco user Quit Date: 20 years ago e-Cigarette/Vaping Use: Never Used Second Hand Smoke Exposure: No Current occupational status: employed Current occupation: [employer] Current occupational exposures/hazards: No Sexual orientation: Straight/Heterosexual Gender identity: Female Cognitive needs: No Hearing needs: No Vision needs: No Female Reproductive History Menstrual Age of Menarche: 11 Physical Exam Vital Signs: Last Vital Signs Temp 98.1 F 03/23/23 11:50 Pulse 88 03/23/23 11:50 BP 130/98 H 03/23/23 11:50 Pulse Ox 98 03/23/23 11:50 Oxygen Delivery Method Room Air 03/23/23 11:50 Const General: cooperative and healthy appearing Nutritional Appearance: well nourished Orientation/consciousness: patient oriented x3 Limitations: no limitations HEENT Head: Yes normal to inspection Eyes General: appearance normal, both eyes and all related structures Neck Neck: Yes normal visual inspection Chest Chest palpation & inspection: normal palpation of entire chest wall Resp Effort & Inspection: normal respiratory effort Neuro General: patient oriented x3 Assessment & Plan Assessment & Plan (1) Acute bronchitis: Code(s): J20.9 - Acute bronchitis, unspecified Plan: Chest x-ray was reviewed by me. No infiltrate seen. Orders: Orders XR chest 2V Today R05.9 - Cough, unspecified Coding Level of Care Code Est Pt Level 3 (78977) Diagnoses Acute bronchitis J20.9
[2023-03-23 11:50] VITALS: BP 130/98; PULSE 88; TEMP 36.7; O2SAT 98
== END 2023-03-23 13:13 | disposition home or self-care (01) ==
PROVIDERS: PCP Nurse Practitioner Family; Visit Provider Internal Medicine
DX: J20.9 Acute bronchitis, unspecified (principal)
CPT/HCPCS: 99213

== ENCOUNTER 2023-03-23 12:22 | Outpatient (REF) | payer OTHER, SELFPAY ==
--- NOTE | ~2023-03-23 | XR_ITS ---
EXAMINATION: XR CHEST CLINICAL INFORMATION: Cough COMPARISON: November 1721 TECHNIQUE: 2 views of the chest were obtained. FINDINGS: No significant abnormality is noted involving the heart, lungs, mediastinum, bony thorax or soft tissues. XR/XR chest 2V IMPRESSION: Unremarkable examination, without interval change.
== END 2023-03-23 12:23 | disposition home or self-care (01) ==
LOC: HO.HMGCX 12:22
PROVIDERS: PCP Nurse Practitioner Family; Visit Provider Internal Medicine
DX: R05.9 Cough, unspecified (principal)
CPT/HCPCS: 71046

== ENCOUNTER 2023-05-18 06:34 | Outpatient (REF) | payer OTHER, SELFPAY ==
[2023-05-18 11:44] LABS: MANUAL DIFF FLAG NO
[2023-05-18 12:25] LABS: Alanine Aminotransferase 34 U/L (0-31); Albumin Level 4.1 g/dL (3.5-5.0); Alkaline Phosphatase 109 U/L (39-117); Anion Gap 13 (12-20); Aspartate Amino Transferase 36 U/L (5-31); Basophils Percent Auto 0.9 % (0-2); Bilirubin Total 0.3 mg/dL (0.0-1.0); Blood Urea Nitrogen 16 mg/dL (9-16); Calcium 9.7 mg/dL (8.4-10.2); Carbon Dioxide 27 mmol/L (22-29); Chloride 106 mmol/L (96-108); Cholesterol 258 mg/dL (<200); Eosinophils Absolute Auto 0.1 X10*3/uL (0.0-0.4); Eosinophils Percent Auto 2.8 % (0-4); Estimated Glomerular Filt Rate > 60; Glucose Fasting 90 mg/dL (60-99); HDL Cholesterol 76 mg/dL (>40); Hematocrit 39.9 % (37.0-47.0); Hemoglobin 12.7 g/dl (12.0-16.0); Imm Gran Abs Auto 0.01 X10*3/uL (0.00-0.03); Imm Gran Pct Auto 0.2 % (0.0-0.4); LDL Cholesterol Calculated 160 mg/dL (<100); Lymphocytes Absolute Auto 1.6 X10*3/uL (1.2-4.9); Lymphocytes Percent Auto 33.8 % (20-40); Mean Corpuscular HGB Conc 31.8 g/dl (31.0-35.0); Mean Corpuscular Volume 94.3 fL (80.0-98.0); Mean Platelet Volume 10.4 fL (9.4-12.3); Monocytes Absolute Auto 0.6 X10*3/uL (0.1-1.2); Neutrophils Absolute Auto 2.3 x10*3/uL (2.0-8.3); Neutrophils Percent Auto 50.3 % (45-73); Platelet Count 227 X10*3/uL (160-400); Potassium 4.1 mmol/L (3.3-5.1); Red Blood Count 4.23 X10*6/uL (4.20-5.50); Red Cell Distribution Width 12.7 % (11.0-16.0); Sodium 142 mmol/L (135-145); TSH reflex Free T4 4.07 uIU/mL (0.32-4.0); Total Protein 7.2 g/dL (6.5-8.0); Triglycerides 112 mg/dL (<150); White Blood Count 4.6 X10*3/uL (4.8-10.8)
[2023-05-18 13:42] LABS: Free T4 (Free Thyroxine) 0.76 ng/dL (0.71-1.85)
[2023-05-18 14:12] LABS: Appearance Urine Clear; Color Urine Yellow; Glucose Urine UA Negative (Negative); Leukocyte Esterase Urine Negative (Negative); Nitrite Urine Negative (Negative); PH 5.5 (5.0-9.0); Urine Blood Negative (Negative); Urine Ketones Negative (Negative); Urine Protein Negative (Neg-Trace)
== END 2023-05-18 06:35 | disposition home or self-care (01) ==
LOC: HO.HMGCLDS 06:34
PROVIDERS: PCP Nurse Practitioner Family; Visit Provider Nurse Practitioner Family
DX: E78.5 Hyperlipidemia, unspecified (principal); R74.8 Abnormal levels of other serum enzymes
CPT/HCPCS: 36415; 80053; 80061; 81003; 84439; 84443; 85025

== ENCOUNTER 2023-08-28 07:58 | Outpatient (AMB) | payer OTHER, SELFPAY ==
[2023-08-28 08:03] VITALS: BP 126/80; BMI 36.0
--- NOTE | 2023-08-28 08:03 | MHC.OFFVIS ---
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 Intake Note: No concerns Appliance Tester Required: No Information Interpreted: non-clinical & clinical Level Vial Inspector And Tester: Level Vial Inspector And Tester Present (Flower Holliselicia PECK) Accompanied by: Self / Same As Patient Allergies doxycycline Allergy (Mild, Verified 08/28/23 08:06) n/v caffeine [From CAFERGOT] Allergy (Unknown, Verified 08/28/23 08:06) VOMITING cetirizine [From ZYRTEC] Adverse Reaction (Unknown, Verified 08/28/23 08:06) RAGE ergotamine [Cafergot] Adverse Reaction (Unknown, Verified 08/28/23 08:06) nausea and vomiting meperidine [Demerol] Adverse Reaction (Unknown, Verified 08/28/23 08:06) nausea and vomiting From CAFERGOT Allergy (Unknown, Uncoded 08/28/23 08:06) VOMITING From DEMEROL Allergy (Unknown, Uncoded 08/28/23 08:06) VOMITING Is last menstrual period known: No (Ablation) HPI HPI Comments History of Present Illness Details She is a premenopausal woman presenting for annual examination. Doing well with no concerns. She tries to eat healthy. Takes vitamin-D supplements and has adequate sources of calcium in her diet. No menses since her ablation 2017. Currently is sexually active, , monogamous. Declines need for STD screening. Vasectomy for contraception. Denies family history of ovarian or colon cancer. History of breast cancer-sister, BRCA negative. Last pap smear 2021, negative. Mammogram: 2022. Is planning a future colonoscopy. [facility] Medical History Physical exam Hx of migraine headaches Surgical History History of endometrial ablation History of gastric surgery History of placement of ear tubes H/O eye surgery History of mandibular surgery Hx of tonsillectomy Hx of adenoidectomy Hx of cholecystectomy Family History Father Non-Hodgkin lymphoma CVD (cardiovascular disease) Mother Alzheimer disease Sister History of breast cancer Paternal Grandfather Substance use disorder Paternal Uncle Substance use disorder Social History Household Members: Spouse Household Members Other:: son Housing: House Alcohol intake: current Alcohol intake frequency: holidays/special occasions only Patient Tobacco Use Status: Former Tobacco user Quit Date: 20 years ago e-Cigarette/Vaping Use: Never Used Second Hand Smoke Exposure: No Current occupational status: employed Current occupation: [employer] [place] [employer] Current occupational exposures/hazards: No Sexual orientation: Straight/Heterosexual Gender identity: Female Cognitive needs: No Hearing needs: No Vision needs: No Female Reproductive History Menstrual Age of Menarche: 11 control method: permanent sterilization Permanent Sterilization: Vasectomy Total pregnancies: 2 Full term: 2 Number of Living Children: 2 Date of last pap smear: 08/16/21 Date of Mammogram: 02/20/23 Review of Systems Const All systems reviewed & are unremarkable except as noted in HPI and below Reports as per HPI Eyes Reports no additional complaints ENT Reports no additional complaints Card Reports no additional complaints Resp Reports no additional complaints GI Reports as per HPI and Reports no additional complaints Reports as per HPI Musc Reports no additional complaints Skin/Breast Reports as per HPI Neuro Reports no additional complaints Psych Reports no additional complaints Endo Reports no additional complaints Douglas/Lymph Reports no additional complaints Aller/Immun Reports no additional complaints Physical Exam Vital Signs: Last Vital Signs BP 126/80 08/28/23 08:03 BMI result Body Mass Index 36.0 Const General: cooperative, healthy appearing, no acute distress, well developed and alert Orientation/consciousness: patient oriented x3 HEENT Head: Yes normal to inspection Eyes General: appearance normal, both eyes and all related structures Neck Neck: Yes normal visual inspection Thyroid: Thyroid normal Chest Chest palpation & inspection: normal inspection of the chest and other (no puckering, dimpling, peau de orange, retraction, discharge, masses) Breast/axilla inspection: normal inspection of the breasts Breast/axilla palpation: normal palpation of the breasts Resp Effort & Inspection: normal respiratory effort GI Inspection: Yes normal to inspection Palpation (GI): Soft to palpation Rectal Exam - Female: deferred General: Yes bladder normal to palpation External Female Exam: normal external appearance and normal appearance of the urethra Speculum Exam - Vagina: normal appearance of the vagina, normal palpation and normal vaginal discharge Speculum Exam - Cervix: normal appearance of the cervix and normal palpation Bimanual exam- vagina & uterus: normal bimanual exam, normal palpation, uterine size normal, bladder normal to palpation, normal palpation and non-tender Bimanual Exam- Adnexa, other: no masses Skin General skin exam: no rashes or lesions noted Rashes: no rashes Neuro General: patient oriented x3 Cognition (Neuro): normal cognition Extrem General: Yes normal to inspection Psych Attitude: cooperative Thought process: Normal thought process present Assessment & Plan Assessment & Plan (1) Encounter for well woman exam with routine gynecological exam: Code(s): Z01.419 - Encounter for gynecological examination (general) (routine) without abnormal findings Plan Discussed: Current recommendations for pap smears per ASCCP guidelines. Breast awareness and periodic breast exams. Maintain a healthy lifestyle including a well balanced diet and routine exercise. Mammogram yearly. Colonoscopy >45, or at risk sooner. Patient verbalizes understanding and agrees to the plan of care. She was given opportunity to ask questions and all questions were answered to the best of my ability. RTO in one year for annual rewriter examination. This note is constructed using voice recognition software. While every effort has been made to ensure accuracy, shipping/receiving manager errors may have been included. Coding Level of Care Code Est Pt Prev Care 40-64y(59794) Diagnoses Encounter for well woman exam with routine gynecological exam Z01.419
== END 2023-08-28 08:28 | disposition home or self-care (01) ==
LOC: HO.HWS 07:58
PROVIDERS: PCP Nurse Practitioner Family; Visit Provider Advanced Practice Midwife
DX: Z01.419 Encounter for gynecological examination (general) (routine) without abnormal findings (principal)
CPT/HCPCS: 99396

== ENCOUNTER → 2023-08-28 07:58 | Outpatient (BNVA) | payer OTHER, SELFPAY | PROVIDERS: PCP Nurse Practitioner Family; Visit Provider Advanced Practice Midwife ==

== ENCOUNTER 2024-01-07 06:51 | Outpatient (REF) | payer OTHER, SELFPAY ==
[2024-01-07 11:04] LABS: Cholesterol 224 mg/dL (<200); HDL Cholesterol 81 mg/dL (>40); LDL Cholesterol Calculated 130 mg/dL (<100); Triglycerides 66 mg/dL (<150)
[2024-01-07 11:09] LABS: HBc Num1 0.23 S/CO (0.00-0.79); Hepatitis A Antibody IgM 0.12 Index (0-0.79); Hepatitis B Core Antibody Nonreactive (Nonreactive); Hepatitis B Surface Antigen Negative (Negative); ~HepC Num1 0.16 S/CO (0.00-0.79); ~Hepatitis A Antibody IgM Nonreactive (Nonreactive); ~Hepatitis B Surface Antibody REACTIVE (Nonreactive); ~Hepatitis C Antibody Nonreactive (Nonreactive)
[2024-01-07 11:22] LABS: TSH reflex Free T4 4.09 uIU/mL (0.32-4.0)
[2024-01-07 11:54] LABS: Free T4 (Free Thyroxine) 0.81 ng/dL (0.71-1.85)
[2024-01-08 17:44] LABS: Thyroid Peroxidase Antibodies 150 IU/mL (<9)
== END 2024-01-07 06:52 | disposition home or self-care (01) ==
LOC: HO.HMGCLDS 06:51
PROVIDERS: PCP Nurse Practitioner Family; Visit Provider Nurse Practitioner Family
DX: R74.8 Abnormal levels of other serum enzymes (principal); R79.89 Other specified abnormal findings of blood chemistry; E78.5 Hyperlipidemia, unspecified
CPT/HCPCS: 36415; 80061; 84439; 84443; 86376; 86704; 86706; 86709; 86803; 87340

== ENCOUNTER 2024-01-12 12:21 | Outpatient (AMB) | payer OTHER, SELFPAY ==
--- NOTE | 2024-01-12 12:24 | A.OFFPC_ITS ---
Vital Signs 01/12/24 12:30 01/12/24 13:11 Height 5 ft 7 in Weight 231 lb BMI 36.2 BP 142/86 H 128/84 Blood Pressure Location Rt brachial Rt brachial Position Sitting Sitting Pulse 81 Pulse Source Pulse Oximeter Pulse Oximetry (%) 98 Oxygen Delivery Method Room Air Intake Visit Reasons: PE Intake Note: Patient here for physical exam. Pap: 2021 mammo:2022 Allergies doxycycline Allergy (Mild, Verified 01/12/24 14:05) n/v caffeine [From CAFERGOT] Allergy (Unknown, Verified 01/12/24 14:05) VOMITING cetirizine [From ZYRTEC] Adverse Reaction (Unknown, Verified 01/12/24 14:05) RAGE ergotamine [Cafergot] Adverse Reaction (Unknown, Verified 01/12/24 14:05) nausea and vomiting meperidine [Demerol] Adverse Reaction (Unknown, Verified 01/12/24 14:05) nausea and vomiting From CAFERGOT Allergy (Unknown, Uncoded 01/12/24 14:05) VOMITING From DEMEROL Allergy (Unknown, Uncoded 01/12/24 14:05) VOMITING Medication List - Last Reconciled 01/12/24 by Mitchell Morgan, SUPERVISOR [employer]- cholecalciferol (vitamin D3) 50 mcg PO DAILY cholestyramine-aspartame 4 gram (Prevalite) 1 ea PO DAILY epinephrine (EpiPen 2-Jeferson) 0.3 mg (0.3 mL) IM Q10M PRN levothyroxine 25 mcg PO DAILY 30 days omeprazole 20 mg PO DAILY 90 days sumatriptan succinate 6 mg (0.5 mL) subcut BID PRN 30 days Tobacco use date assessed: 01/12/24 Dental Screening Dental Screen Date: 01/12/24 Did you have a dental visit in the last 12 months?: No Did you have a dental problem in the last 6 months where you did not have access to dental care?: No Was dental information given to patient?: No HPI PE HPI Details Pt is here for a PE. Will order labs. Has a physician gynecologist. Mammo is up to date. P t was referred for a colon screen but did not schedule this, will refer to requested provider. Pt's cholesterol was elevated. She refuses medication, would like to work on her diet, will recheck lipids. Pt's TSH was elevated, positive thyroid peroxidase. Will start levothyroxine 25mcg. Will repeat labs. [facility] Medical History Physical exam Hx of migraine headaches Surgical History History of endometrial ablation History of gastric surgery History of placement of ear tubes H/O eye surgery History of mandibular surgery Hx of tonsillectomy Hx of adenoidectomy Hx of cholecystectomy Family History Father Non-Hodgkin lymphoma CVD (cardiovascular disease) Mother Alzheimer disease Sister History of breast cancer Paternal Grandfather Substance use disorder Paternal Uncle Substance use disorder Social History Household Members: Spouse Household Members Other:: son Housing: House Alcohol intake: current Alcohol intake frequency: holidays/special occasions only Patient Tobacco Use Status: Former Tobacco user e-Cigarette/Vaping Use: Never Used Second Hand Smoke Exposure: No Current occupational status: employed Current occupation: [employer] [place] [employer] Current occupational exposures/hazards: No Sexual orientation: Straight/Heterosexual Gender identity: Female Cognitive needs: No Hearing needs: No Vision needs: No Female Reproductive History Menstrual Age of Menarche: 11 Questionnaire PHQ-9 Over the last 2 weeks, how often have you been bothered by any of the following problems? 12557 - PHQ-9 Billing: Patient declined-do not bill Source: Developed by Drs. Dereje Gutierrez, Maribeth iPckens, Rigo Quinn and colleagues, with an educational violette from [employer]. Thrive Questionnaire Date Thrive assessed: 09/25/21 I am a: Patient What is your living situation today?: I have a steady place to live Within the past 12 months, did the food you bought not last and you didn't have the money to get more?: Never true Within the past 12 months, did you worry whether your food would run out before you got money to buy more?: Never true Please select the resources that you would like help with: None THRIVE Score: 0 AUDIT C Alcohol Use Questionnaire (AUDIT-C) 1. How often do you have a drink containing alcohol?: 2-3 times a week 2. How many drinks containing alcohol do you have on a typical day when you are drinking?: 1 or 2 3. How often do you have six or more drinks on one occasion?: Never Total Score: 3 REG-7 AMB Questionnaire REG-7 Date REG - 7 assessed: 09/25/21 Feeling nervous, anxious, or on edge: 0 = Not at all Not being able to stop or control worryin = Several days Worrying too much about different things: 1 = Several days Trouble relaxin = Several days Being so restless that it is hard to sit still: 0 = Not at all Becoming easily annoyed or irritable: 1 = Several days Feeling afraid as if something awful might happen: 0 = Not at all Total REG-7 score (0-4 normal; 5-9 mild; 10-14 moderate; 15-21 severe): 4 Source: Developed by Drs. Dereje Gutierrez, Maribeth Pickens, Rigo Quinn and colleagues, with an educational violette from [employer]. REG-7 Assessment Billing REG-7 Assessment Tool: pt declined-do not bill Review of Systems Const Denies chills and Denies fever(s) Eyes Denies blurry vision ENT Denies vertigo, Denies dizziness and Denies sore throat Card Denies chest pain at rest, Denies chest pain with activity, Denies diaphoresis, Denies dyspnea and Denies dyspnea on exertion Resp Denies cough, Denies dyspnea, Denies dyspnea on exertion and Denies wheezing GI Denies abdominal pain, Denies melena, Denies hematochezia, Denies constipation, Denies diarrhea and Denies loose stools Denies hematuria Musc Denies numbness and Denies tingling Skin/Breast Denies lesions Neuro Denies vertigo, Denies dizziness, Denies numbness and Denies tingling Psych Denies anxiety, Denies depression, Denies homicidal ideation, Denies suicidal ideation and Denies other (substance abuse) Aller/Immun Denies wheezing Physical exam (Primary Care) Vital Signs: Last Vital Signs Pulse 81 01/12/24 12:30 BP 142/86 H 01/12/24 12:30 Pulse Ox 98 01/12/24 12:30 Oxygen Delivery Method Room Air 01/12/24 12:30 BMI result Body Mass Index 36.2 Tobacco/Smoking Status: Tobacco use Status Tobacco use date assessed 01/12/24 01/12/24 12:35 Patient Tobacco Use Status Former Tobacco user 01/12/24 12:27 e-Cigarette/Vaping Use Never Used 01/12/24 12:27 Thrive Assessment: Date of Thrive Assessment Date Thrive assessed 09/25/21 01/12/24 12:27 Const General: cooperative Nutritional Appearance: obese Orientation/consciousness: patient oriented x3 HENMT Head: Yes normal to inspection, Yes normocephalic and Yes atraumatic Ears: TM's normal bilaterally Eyes General: appearance normal, both eyes and all related structures Alignment and Position: alignment normal and position normal Neck Neck: Yes normal visual inspection and Yes no lymphadenopathy Thyroid: Thyroid normal Resp Effort & Inspection: normal respiratory effort Auscultation: clear to auscultation bilaterally Cardio Rate: regular rate Rhythm: regular rhythm Heart sounds: S1 normal heart sound present, S2 normal heart sound present and no murmurs GI Palpation (GI): Soft to palpation and nontender Auscultation: normal bowel sounds Skin Rashes: no rashes Neuro General: patient oriented x3, moves all extremities, no focal motor deficits and deep tendon reflexes 2+ bilaterally Romberg Test: Negative Psych Appearance: grossly normal Mental Status: mental status grossly normal Speech and movement: Normal speech and movement present Affect: normal affect Attitude: cooperative Thought process: Normal thought process present Thought content: Normal thought content present Insight: Good insight present (Psych) Judgement: Good judgement present (Psych) Assessment and Plan Assessment & Plan (1) Physical exam: Code(s): Z00.00 - Encounter for general adult medical examination without abnormal findings Plan: Labs ordered (2) Dyslipidemia: Code(s): E78.5 - Hyperlipidemia, unspecified Plan: Labs ordered (3) Elevated TSH: Code(s): R79.89 - Other specified abnormal findings of blood chemistry Plan: Labs ordered, starting levothyroxine Plan The patient agreed to the use of a medical services assistant for this encounter. Scribed for LALITHA Kwong by Ceci Mixon medical services assistant, on 01/12/2024 at 12:45 EST. Orders: Orders TSH reflex Free T4 2 Months R79.89 - Other specified abnormal findings of blood chemistry Lipid Panel 2 Months E78.5 - Hyperlipidemia, unspecified Comprehensive Irma. Panel Fast 2 Months E78.5 - Hyperlipidemia, unspecified Referrals Gastroenterology Referral Z00.00 - Encounter for general adult medical examination without abnormal findings Medications: New levothyroxine 25 mcg PO DAILY 30 days 30 tabs 1RF levothyroxine 25 mcg PO DAILY 30 days 30 tabs 1RF Refilled epinephrine (EpiPen 2-Jeferson) for 2 doses 0.3 mg (0.3 mL) IM Q10M PRN 2 ea 0RF anaphylaxis Coding Level of Care Code Est Pt Level 3 (57240) Est Pt Prev Care 40-64y(91392) Diagnoses Physical exam Z00.00 Dyslipidemia E78.5 Elevated TSH R79.89
[2024-01-12 12:30] VITALS: BP 142/86; PULSE 81; O2SAT 98; BMI 36.2
[2024-01-12 13:11] VITALS: BP 128/84
== END 2024-01-12 13:14 | disposition home or self-care (01) ==
PROVIDERS: Visit Provider Nurse Practitioner Family
DX: Z00.00 Encounter for general adult medical examination without abnormal findings (principal); E78.5 Hyperlipidemia, unspecified; R79.89 Other specified abnormal findings of blood chemistry
CPT/HCPCS: 99213; 99396

== ENCOUNTER 2024-03-21 07:02 | Outpatient (REF) | payer OTHER, SELFPAY ==
[2024-03-21 11:25] LABS: TSH reflex Free T4 4.09 uIU/mL (0.32-4.0)
[2024-03-21 11:26] LABS: Anion Gap 13 (12-20)
[2024-03-21 11:31] LABS: Alanine Aminotransferase 47 U/L (0-31); Albumin Level 4.2 g/dL (3.5-5.0); Alkaline Phosphatase 83 U/L (39-117); Aspartate Amino Transferase 38 U/L (5-31); Bilirubin Total 0.4 mg/dL (0.0-1.0); Blood Urea Nitrogen 12 mg/dL (9-16); Calcium 9.3 mg/dL (8.4-10.2); Carbon Dioxide 27 mmol/L (22-29); Chloride 106 mmol/L (96-108); Cholesterol 243 mg/dL (<200); Estimated Glomerular Filt Rate > 60; Glucose Fasting 90 mg/dL (60-99); HDL Cholesterol 86 mg/dL (>40); LDL Cholesterol Calculated 133 mg/dL (<100); Potassium 3.8 mmol/L (3.3-5.1); Sodium 142 mmol/L (135-145); Total Protein 7.3 g/dL (6.5-8.0); Triglycerides 120 mg/dL (<150)
[2024-03-21 12:25] LABS: Free T4 (Free Thyroxine) 0.77 ng/dL (0.71-1.85)
[2024-03-22 09:44] LABS: Thyroid Peroxidase Antibodies 157 IU/mL (<9)
== END 2024-03-21 07:03 | disposition home or self-care (01) ==
LOC: HO.HMGCLDS 07:02
PROVIDERS: PCP Nurse Practitioner Family; Visit Provider Nurse Practitioner Family
DX: E78.5 Hyperlipidemia, unspecified (principal); R79.89 Other specified abnormal findings of blood chemistry
CPT/HCPCS: 36415; 80053; 80061; 84439; 84443; 86376

== ENCOUNTER 2024-03-24 07:41 | Outpatient (AMB) | payer OTHER, SELFPAY ==
--- NOTE | 2024-03-24 07:21 | MHC.PC.OV ---
Intake Visit Reasons: discuss recent labs Allergies doxycycline Allergy (Mild, Verified 01/12/24 14:05) n/v caffeine [From CAFERGOT] Allergy (Unknown, Verified 01/12/24 14:05) VOMITING cetirizine [From ZYRTEC] Adverse Reaction (Unknown, Verified 01/12/24 14:05) RAGE ergotamine [Cafergot] Adverse Reaction (Unknown, Verified 01/12/24 14:05) nausea and vomiting meperidine [Demerol] Adverse Reaction (Unknown, Verified 01/12/24 14:05) nausea and vomiting From CAFERGOT Allergy (Unknown, Uncoded 01/12/24 14:05) VOMITING From DEMEROL Allergy (Unknown, Uncoded 01/12/24 14:05) VOMITING Medication List - Last Reconciled 03/24/24 by VAMSI Garzon-FRANCHESCA cholecalciferol (vitamin D3) 50 mcg PO DAILY cholestyramine-aspartame 4 gram (Prevalite) 1 ea PO DAILY epinephrine (EpiPen 2-Jeferson) 0.3 mg (0.3 mL) IM Q10M PRN levothyroxine 50 mcg PO DAILY 30 days omeprazole 20 mg PO DAILY 90 days sumatriptan succinate 6 mg (0.5 mL) subcut BID PRN 30 days Tobacco use date assessed: 01/12/24 Dental Screening Dental Screen Date: 01/12/24 HPI discuss recent labs HPI Details Pt's last TSH was elevated. She is currently taking levothyroxine 25mcg. She reports that she is taking this every morning. Will increase this to 50mcg. Will repeat TSH in 2 months. Denies fever, chills, and constipation. [facility] Medical History Physical exam Hx of migraine headaches Surgical History History of endometrial ablation History of gastric surgery History of placement of ear tubes H/O eye surgery History of mandibular surgery Hx of tonsillectomy Hx of adenoidectomy Hx of cholecystectomy Family History Father Non-Hodgkin lymphoma CVD (cardiovascular disease) Mother Alzheimer disease Sister History of breast cancer Paternal Grandfather Substance use disorder Paternal Uncle Substance use disorder Social History Household Members: Spouse Household Members Other:: son Housing: House Alcohol intake: current Alcohol intake frequency: holidays/special occasions only Patient Tobacco Use Status: Former Tobacco user e-Cigarette/Vaping Use: Never Used Second Hand Smoke Exposure: No Current occupational status: employed Current occupation: [employer] Current occupational exposures/hazards: No Sexual orientation: Straight/Heterosexual Gender identity: Female Cognitive needs: No Hearing needs: No Vision needs: No Female Reproductive History Menstrual Age of Menarche: 11 Questionnaire Thrive Questionnaire Date Thrive assessed: 09/25/21 REG-7 AMB Questionnaire REG-7 Date REG - 7 assessed: 09/25/21 Source: Developed by Drs. Dereje Gutierrez, Maribeth Pickens, Rigo Quinn and colleagues, with an educational violette from [employer]. Review of Systems Const Reports as per HPI Physical exam (Primary Care) Tobacco/Smoking Status: Tobacco use Status Tobacco use date assessed 01/12/24 03/24/24 07:22 Patient Tobacco Use Status Former Tobacco user 03/24/24 07:22 e-Cigarette/Vaping Use Never Used 03/24/24 07:22 Thrive Assessment: Date of Thrive Assessment Date Thrive assessed 09/25/21 03/24/24 07:22 Const General: cooperative Orientation/consciousness: patient oriented x3 Neuro General: patient oriented x3 Psych Appearance: grossly normal Mental Status: mental status grossly normal Speech and movement: Clear speech present Affect: normal affect Attitude: cooperative Thought process: Normal thought process present Thought content: Normal thought content present Insight: Good insight present (Psych) Judgement: Good judgement present (Psych) Telehealth Telehealth Telehealth Platform: [facility] Location of provider rendering services: practice address Location of patient: address on file Patient Identification confirmed using: Name, : Yes Telehealth method: video Patient verbally consented to treatment: Yes Patient verbally consented to billing insurance company: Yes Patient informed of any privacy concerns related to visit: Yes Minutes spent on Phone/Video with Pt.: 5 Assessment and Plan Assessment & Plan (1) Elevated TSH: Code(s): R79.89 - Other specified abnormal findings of blood chemistry Plan The patient agreed to the use of a medical staff credentialing coordinator for this encounter. Scribed for VAMSI Kwong-BC by Ceci Mixon medical staff credentialing coordinator, on 03/24/2024 at 07:25 EST. Orders: Orders MM screening mammo BI Today Z12.31 - Encounter for screening mammogram for malignant neoplasm of breast Medications: Changed From levothyroxine 25 mcg PO DAILY 30 days 30 tabs 1RF To levothyroxine 50 mcg PO DAILY 30 tabs 2RF 30 days Coding Level of Care Code Tele Est Pt Level 3 (94984) Diagnoses Elevated TSH R79.89
== END 2024-03-24 09:41 | disposition home or self-care (01) ==
LOC: HO.HMGC 07:41
PROVIDERS: PCP Nurse Practitioner Family; Visit Provider Nurse Practitioner Family
DX: R79.89 Other specified abnormal findings of blood chemistry (principal)
CPT/HCPCS: 99213

== ENCOUNTER 2024-04-12 11:37 | Outpatient (REF) | payer OTHER, SELFPAY ==
[2024-04-12 14:38] LABS: Influenza A PCR NEGATIVE (Negative); Influenza B PCR NEGATIVE (Negative); Resp Syncy Virus RNA Qual PCR NEGATIVE (Negative); SARS COV2 PCR INHOUSE NEGATIVE (Negative)
== END 2024-04-12 11:38 | disposition home or self-care (01) ==
LOC: HO.LAB 11:37
PROVIDERS: Physician Assistant; PCP Nurse Practitioner Family
DX: J06.9 Acute upper respiratory infection, unspecified (principal)
CPT/HCPCS: 0241U; 87880

== ENCOUNTER 2024-04-12 11:37 | Outpatient (AMB) | payer OTHER, SELFPAY ==
--- NOTE | 2024-04-12 11:40 | AM.OFFWIN_ITS ---
Intake Vital Signs 04/12/24 11:42 Height 5 ft 7 in Weight 231 lb BMI 36.2 BP 146/88 H Blood Pressure Location Rt brachial Position Sitting Pulse 64 Pulse Source Pulse Oximeter Temp 98.1 F Temp Source Oral Pulse Oximetry (%) 98 Oxygen Delivery Method Room Air Intake Visit Reasons: EP sore throat/?strep Intake Note: pt c/o sore throat, ? strep. Started last night Patient Tobacco Use Status: Former Tobacco user Allergies doxycycline Allergy (Mild, Verified 04/12/24 11:41) n/v caffeine [From CAFERGOT] Allergy (Unknown, Verified 04/12/24 11:41) VOMITING cetirizine [From ZYRTEC] Adverse Reaction (Unknown, Verified 04/12/24 11:41) RAGE ergotamine [Cafergot] Adverse Reaction (Unknown, Verified 04/12/24 11:41) nausea and vomiting meperidine [Demerol] Adverse Reaction (Unknown, Verified 04/12/24 11:41) nausea and vomiting From CAFERGOT Allergy (Unknown, Uncoded 04/12/24 11:41) VOMITING From DEMEROL Allergy (Unknown, Uncoded 04/12/24 11:41) VOMITING Do you need a note to return to daycare/school/sports/work: No HPI HPI Comments History of Present Illness Details This is a 48-year-old female with a past medical history of hypothyroidism, cholecystectomy, migraine headaches and gastroesophageal reflux disease presenting for evaluation of a sore throat that she has had since last night. Patient is also reporting bilateral ear pain. Patient denies having any fevers, chills, cough, shortness of breath and has not taken any medication for treatment of her sore throat. Patient reports a colleague recently had strep throat. [facility] Medical History Physical exam Hx of migraine headaches Surgical History History of endometrial ablation History of gastric surgery History of placement of ear tubes H/O eye surgery History of mandibular surgery Hx of tonsillectomy Hx of adenoidectomy Hx of cholecystectomy Family History Father Non-Hodgkin lymphoma CVD (cardiovascular disease) Mother Alzheimer disease Sister History of breast cancer Paternal Grandfather Substance use disorder Paternal Uncle Substance use disorder Social History Household Members: Spouse Household Members Other:: son Housing: House Alcohol intake: current Alcohol intake frequency: holidays/special occasions only Patient Tobacco Use Status: Former Tobacco user e-Cigarette/Vaping Use: Never Used Second Hand Smoke Exposure: No Current occupational status: employed Current occupation: [employer] Current occupational exposures/hazards: No Sexual orientation: Straight/Heterosexual Gender identity: Female Cognitive needs: No Hearing needs: No Vision needs: No Female Reproductive History Menstrual Age of Menarche: 11 Review of Systems Const All systems reviewed & are unremarkable except as noted in HPI and below Denies chills and Denies fever(s) Eyes Reports as per HPI and Reports no additional complaints ENT Reports otalgia (bilaterally), Denies nasal congestion, Denies nasal discharge, Denies sinus pressure and Reports sore throat Card Reports no additional complaints Resp Reports no additional complaints GI Reports no additional complaints, Denies nausea and Denies vomiting Reports no additional complaints Musc Reports no additional complaints Neuro Reports no additional complaints Physical Exam Vital Signs: Last Vital Signs Temp 98.1 F 04/12/24 11:42 Pulse 64 04/12/24 11:42 BP 146/88 H 04/12/24 11:42 Pulse Ox 98 04/12/24 11:42 Oxygen Delivery Method Room Air 04/12/24 11:42 BMI result Body Mass Index 36.2 patient is afebrile Const General: cooperative, healthy appearing, comfortable, no acute distress, well developed, alert, awake and Physically active; No ill appearing or lethargic Nutritional Appearance: average body habitus Orientation/consciousness: patient oriented x3 and No lethargic Limitations: no limitations HEENT Head: Yes normal to inspection Ears: hearing grossly normal bilaterally, external ears normal, TM's normal bilaterally and EAC's normal General nose exam: Normal external nose present Face and sinus: Yes normal facial exam and Yes sinuses nontender Mouth: Normal oral and palatal mucosa present, tongue normal and moist mucous membranes Teeth and gingiva: dentition normal Throat: No posterior oropharynx normal (mild erythema without edema or exudates) and No postnasal drainage Eyes General: appearance normal, both eyes and all related structures Visual Bronson: normal visual bronson by confrontation Alignment and Position: alignment normal Periorbital: periorbital findings normal Eyelids: Yes eyelids normal Conjunctivae: conjunctivae normal Neck Lymphatic: no lymphadenopathy noted Resp Effort & Inspection: normal respiratory effort, able to speak in complete sentences, abnormal respiratory pattern, no audible wheezes, no cough and no respiratory distress Auscultation: clear to auscultation bilaterally Cardio Rate: regular rate Rhythm: regular rhythm Skin General skin exam: no rashes or lesions noted Wounds: no wounds Neuro General: patient oriented x3 Psych Appearance: grossly normal Mental Status: mental status grossly normal Insight: Good insight present (Psych) Judgement: Good judgement present (Psych) Results AMB Rapid Strep AMB Rapid Strep Positive Last Edit by Froylan Barr CMA on 04/12/24 11:56 Results Reviewed Results Reviewed: Laboratory Last Values Strep Scn Rapid Clinic Positive 04/12/24 11:53 Rapid strep + Assessment & Plan Assessment & Plan (1) Strep pharyngitis: Comment: Patient's rapid strep test is positive and she will be discharged home with penicillin. Code(s): J02.0 - Streptococcal pharyngitis Plan: Penicillin 500 mg t.i.d. times 10 days. Patient is instructed to use Tylenol or ibuprofen as needed for her discomfort. Orders: Orders AMB Rapid Strep Screen Today Z13.9 - Encounter for screening, unspecified SARS-CoV2/FLU/RSV Today J06.9 - Acute upper respiratory infection, unspecified Medications: New penicillin V potassium 500 mg PO TID 30 tabs 0RF Coding Level of Care Code Est Pt Level 3 (15038) Diagnoses Strep pharyngitis J02.0 Time Spent (min) 20
[2024-04-12 11:42] VITALS: BP 146/88; PULSE 64; TEMP 36.7; O2SAT 98; BMI 36.2
== END 2024-04-12 12:20 | disposition home or self-care (01) ==
PROVIDERS: PCP Nurse Practitioner Family; Visit Provider Physician Assistant
DX: Z13.9 Encounter for screening, unspecified (principal); J02.0 Streptococcal pharyngitis

== ENCOUNTER 2024-05-20 07:57 | Outpatient (REF) | payer OTHER, SELFPAY ==
[2024-05-20 10:40] LABS: TSH reflex Free T4 1.35 uIU/mL (0.32-4.0)
[2024-05-20 10:47] LABS: Hepatitis A Antibody IgM 0.24 Index (0-0.79); ~Hepatitis A Antibody IgM Nonreactive (Nonreactive)
[2024-05-20 11:06] LABS: HBS Num1 42.58 mIU/mL (0-7.99); HBc Num1 0.18 S/CO (0.00-0.79); HBsAGNum1 0.52 S/CO (0.00-0.99); Hepatitis B Core Antibody Nonreactive (Nonreactive); Hepatitis B Surface Antigen Negative (Negative); ~HepC Num1 0.16 S/CO (0.00-0.79); ~Hepatitis B Surface Antibody REACTIVE (Nonreactive); ~Hepatitis C Antibody Nonreactive (Nonreactive)
== END 2024-05-20 07:58 | disposition home or self-care (01) ==
LOC: HO.HMGCLDS 07:57
PROVIDERS: PCP Nurse Practitioner Family; Visit Provider Nurse Practitioner Family
DX: R79.89 Other specified abnormal findings of blood chemistry (principal); R74.8 Abnormal levels of other serum enzymes
CPT/HCPCS: 36415; 84443; 86704; 86706; 86709; 86803; 87340

== ENCOUNTER 2024-07-14 09:50 | Outpatient (AMB) | payer OTHER, SELFPAY ==
--- OUTSIDE RECORDS SUMMARY | 2024-07-14 09:53 | XMS_ITS ---
Author Organization [facility] Address [address] [place] [id number] Care Team Providers Care School Occupational Therapist Name Role Phone JANELL KAN Primary Care Provider Dereje Julio Unavailable [phone] Encounters Encounter Location Date Provider Diagnosis [facility] [address] [place] [id number] 01/21/2024 Dereje Pennington PLAN OF TREATMENT No Information
--- OUTSIDE RECORDS SUMMARY | 2024-07-14 09:53 | XMS_ITS | Patient Health Record ---
Author Organization [facility] Address [address] [place] [address] Care Team Providers Care Gaming Surveillance Observer Name Role Phone JANELL KAN Primary Care Provider Dereje Julio [phone] ALLERGIES Allergen (clinical drug ingredient) Drug/Non Drug Allergy documented on EMR Reaction Allergy Type Onset Date Status meperidine Demerol Unknown Drug Allergy Active caffeine / ergotamine Cafergot Unknown Drug Allergy Active some enviromental an d food allergies (uncoded) Unknown Allergy Active REASON FOR REFERRAL No Information MEDICATIONS Medication SIG (Take, Route, Fr equency, Duration) Notes Start Date End Date Status Tylenol prn 07/27/2023 07/27/2023 Active SUMAtriptan 6mg/0.5ml 07/27/2023 001 Active MoviPrep 100 GM Use as directed Oral ly once for 1 dose 09/21/2012 Active SOCIAL HISTORY Sex Assigned At : Social History Observation Description Sex Assigned At Unknown PROBLEMS Problem Type ICD Code Onset Dates Problem Status W/U Status Risk SNOMED Code Notes Problem IBS (irritable bowel syndrome) (564.1) Active confirmed Irritable bowel syndrome (19656948) Problem Abnormal computed tomography of gastrointestinal tract (793.4) Active confirmed Computed tomography of abdomen abnormal (finding) ([id number] 10946) Encounters Encounter Location Date Provider Diagnosis [facility] [address] [place] [id number] 01/21/2024 Dereje Pennington PLAN OF TREATMENT Future Test Test Name Order Date COLONOSCOPY 09/21/2012 Insurance Providers Payer Name Payer Address Payer Phone Subscriber Number Group Number Insured Name Patient Relationship to Insured Coverage Start Date Coverage End Date [employer] [address] [address] [place] [address] [id number] NESHA IBARRA Self - patient is the insured MEDICAL (GENERAL) HISTORY Medical History History ICD Code Denies OK,DM,CVA,Lung disease,renal dise ase Migraines Told of IBS-seen by Dr. Osuna-never had a colonscopy nor flex sig Told of neg. labs for celiac disease Hospitalized in 07/2012 for a cute diarrhea and N/V--CT showed a colitis --had been on NSAIDs Surgical History Surgery Date(Month/Year) tonsillectomy and adenoidectomy 1978 cholecystectomy 1998 TMJ surgery/reconstruction eardrum repair 1989 ear tubes eyelid repair 1975
--- NOTE | 2024-07-14 09:58 | MHC.OFFWIV ---
Intake Vital Signs 07/14/24 09:59 Height 5 ft 7 in Weight 265 lb BMI 41.5 BP 116/78 Blood Pressure Location Lt brachial Position Sitting Pulse 72 Pulse Source Pulse Oximeter Temp 98 F Temp Source Oral Pulse Oximetry (%) 98 Oxygen Delivery Method Room Air Intake Visit Reasons: EP Strep?? Intake Note: Patient here for sore throat that has been on and off for a few weeks. Patient Tobacco Use Status: Former Tobacco user Allergies doxycycline Allergy (Mild, Verified 07/14/24 10:00) n/v caffeine [From CAFERGOT] Allergy (Unknown, Verified 07/14/24 10:00) VOMITING cetirizine [From ZYRTEC] Adverse Reaction (Unknown, Verified 07/14/24 10:00) RAGE ergotamine [Cafergot] Adverse Reaction (Unknown, Verified 07/14/24 10:00) nausea and vomiting meperidine [Demerol] Adverse Reaction (Unknown, Verified 07/14/24 10:00) nausea and vomiting From CAFERGOT Allergy (Unknown, Uncoded 07/14/24 10:00) VOMITING From DEMEROL Allergy (Unknown, Uncoded 07/14/24 10:00) VOMITING Do you need a note to return to daycare/school/sports/work: No HPI HPI Comments History of Present Illness Details Patient is a 48-year-old female complaining of a sore throat on and off for 7 days and a feeling of fatigue. She tells me she had strep throat on April 12 and was given 10 days of penicillin which she took in fall, felt better and was completely fine until last week. She tells me she has not had any fevers and does not really have a cough but finds herself clearing her throat frequently. 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 She tells me she has some coworkers who have also been sick recently with a similar illness. She tells me she has only gotten strep twice in her life, with a 2nd occasion being 15 years ago. She has not tried taking any medications to make herself feel better. [facility] Medical History Physical exam Hx of migraine headaches Surgical History History of endometrial ablation History of gastric surgery History of placement of ear tubes H/O eye surgery History of mandibular surgery Hx of tonsillectomy Hx of adenoidectomy Hx of cholecystectomy Family History Father Non-Hodgkin lymphoma CVD (cardiovascular disease) Mother Alzheimer disease Sister History of breast cancer Paternal Grandfather Substance use disorder Paternal Uncle Substance use disorder Social History Household Members: Spouse Household Members Other:: son Housing: House Alcohol intake: current Alcohol intake frequency: holidays/special occasions only Patient Tobacco Use Status: Former Tobacco user e-Cigarette/Vaping Use: Never Used Second Hand Smoke Exposure: No Current occupational status: employed Current occupation: [employer] Current occupational exposures/hazards: No Sexual orientation: Straight/Heterosexual Gender identity: Female Cognitive needs: No Hearing needs: No Vision needs: No Female Reproductive History Menstrual Age of Menarche: 11 Review of Systems Const All systems reviewed & are unremarkable except as noted in HPI and below Physical Exam Vital Signs: Last Vital Signs Temp 98 F 07/14/24 09:59 Pulse 72 07/14/24 09:59 BP 116/78 07/14/24 09:59 Pulse Ox 98 07/14/24 09:59 Oxygen Delivery Method Room Air 07/14/24 09:59 BMI result Body Mass Index 41.5 Const General: cooperative, healthy appearing, comfortable and no acute distress Orientation/consciousness: patient oriented x3 Limitations: no limitations HEENT Head: Yes normal to inspection Ears: hearing grossly normal bilaterally, external ears normal and TM's normal bilaterally General nose exam: Normal external nose present, Normal nares present and No nasal discharge present Face and sinus: Yes normal facial exam and Yes sinuses nontender Mouth: Normal oral and palatal mucosa present and moist mucous membranes Throat: Yes tonsils normal, Yes uvula midline and Yes posterior oropharynx abnormal (Erythema) Eyes General: appearance normal, both eyes and all related structures Neck Neck: Yes normal visual inspection Resp Effort & Inspection: normal respiratory effort, able to speak in complete sentences, no respiratory distress, not tachypneic, no tripod positioning and no use of accessory muscles Skin General skin exam: no rashes or lesions noted Neuro General: patient oriented x3 Extrem General: Yes normal to inspection and Yes no clubbing, cyanosis or edema Results AMB Rapid Strep AMB Rapid Strep Negative Last Edit by HELENA Garcia on 07/14/24 10:20 Assessment & Plan Assessment & Plan (1) Pharyngitis: Code(s): J02.9 - Acute pharyngitis, unspecified Qualifiers: Pharyngitis/tonsillitis etiology: unspecified etiology Qualified Code(s): J02.9 - Acute pharyngitis, unspecified Plan: - Rapid strep in office was negative, sent throat culture, we will send antibiotics if the throat culture grows anything out. - Sent COVID flu and RSV testing - Recommended using [id number] medications to treat her symptoms, this is likely viral. Orders: Orders Throat Culture Today J02.9 - Acute pharyngitis, unspecified SARS-CoV2/FLU/RSV Today J02.9 - Acute pharyngitis, unspecified Coding Level of Care Code Est Pt Level 4 (98824) Diagnoses Pharyngitis, unspecified etiology J02.9 Pharyngitis/tonsillitis etiology: unspecified etiology
[2024-07-14 09:59] VITALS: BP 116/78; PULSE 72; TEMP 36.6; O2SAT 98; BMI 41.5
== END 2024-07-14 10:43 | disposition home or self-care (01) ==
PROVIDERS: PCP Nurse Practitioner Family; Visit Provider Physician Assistant
DX: J02.9 Acute pharyngitis, unspecified (principal); Z13.9 Encounter for screening, unspecified

== ENCOUNTER 2024-07-14 09:50 | Outpatient (REF) | payer OTHER, SELFPAY ==
[2024-07-14 14:43] LABS: Influenza A PCR NEGATIVE (Negative); Influenza B PCR NEGATIVE (Negative); Resp Syncy Virus RNA Qual PCR NEGATIVE (Negative); SARS COV2 PCR INHOUSE NEGATIVE (Negative)
== END 2024-07-14 09:51 | disposition home or self-care (01) ==
LOC: HO.LAB 09:50
PROVIDERS: PCP Nurse Practitioner Family; Visit Provider Physician Assistant
DX: J02.9 Acute pharyngitis, unspecified (principal)
CPT/HCPCS: 0241U; 87070; 87880

== ENCOUNTER → 2025-02-27 13:34 | Outpatient (BNVA) | payer OTHER, SELFPAY | PROVIDERS: PCP Nurse Practitioner Family; Visit Provider Physician Assistant Medical | DX: Z13.89 Encounter for screening for other disorder (principal) | CPT/HCPCS: 73110; 99202 ==

== ENCOUNTER 2025-03-08 14:44 | Outpatient (AMB) | payer OTHER, SELFPAY ==
--- NOTE | 2025-03-08 14:48 | MHC.PC.OV ---
Vital Signs 03/08/25 14:49 Height 5 ft 7 in Weight 239 lb BMI 37.4 BP 138/92 H Blood Pressure Location Lt brachial Position Sitting Respiration 16 Pulse 71 Pulse Source Pulse Oximeter Pulse Oximetry (%) 97 Oxygen Delivery Method Room Air Intake Visit Reasons: PE reschedule Manager Infrastructure Required: No Accompanied by: Self / Same As Patient Allergies doxycycline Allergy (Mild, Verified 03/08/25 15:16) n/v caffeine (From CAFERGOT) Allergy (Unknown, Verified 03/08/25 15:16) VOMITING cetirizine (From ZYRTEC) Adverse Reaction (Unknown, Verified 03/08/25 15:16) RAGE ergotamine (Cafergot) Adverse Reaction (Unknown, Verified 03/08/25 15:16) nausea and vomiting meperidine (Demerol) Adverse Reaction (Unknown, Verified 03/08/25 15:16) nausea and vomiting From CAFERGOT Allergy (Unknown, Uncoded 03/08/25 15:16) VOMITING From DEMEROL Allergy (Unknown, Uncoded 03/08/25 15:16) VOMITING Medication List - Last Reconciled 03/08/25 by Mitchell Morgan FIRST LINE SUPERVISOR- cholecalciferol (vitamin D3) 50 mcg PO DAILY cholestyramine-aspartame 4 gram 1 ea PO DAILY diclofenac sodium 3% 1 appl topical BID epinephrine (EpiPen 2-Jeferson) 0.3 mg (0.3 mL) IM Q10M PRN levothyroxine 50 mcg PO DAILY omeprazole 20 mg PO DAILY sumatriptan succinate 6 mg (0.5 mL) subcut BID PRN 30 days Tobacco use date assessed: 03/08/25 Dental Screening Dental Screen Date: 03/08/25 Did you have a dental visit in the last 12 months?: Yes Did you have a dental problem in the last 6 months where you did not have access to dental care?: No Was dental information given to patient?: Patient has dentist HPI PE reschedule HPI Details History of Present Illness The patient is a 49-year-old female presenting for a physical examination and preventative care. She is due for a Pap smear and a mammogram, as the orders were placed last year but she did not attend the appointments. The orders have been replaced today, and the importance of these screenings was reinforced. Additionally, she was due for a gastrointestinal screening but did not attend; arrangements are being made for her to see a specific provider of her choice. The patient denies experiencing any chest pain, shortness of breath, abdominal pain, blood in stool, constipation, diarrhea, suicidal ideation, or homicidal ideation. Obesity was noted during the examination, although the rest of the exam was benign. elevated BP. Will have her take her BP at home and send me values via portal. Health Maintenance - Pap smear: Order placed, importance reinforced - Mammogram: Order placed, importance reinforced - Gastrointestinal screening: Arrangements for specific provider Social History Review of Systems - Cardiovascular: Denies chest pain - Respiratory: Denies shortness of breath - Gastrointestinal: Denies abdominal pain, blood in stool, constipation, diarrhea - Psychiatric: Denies suicidal ideation, homicidal ideation Physical Exam General: Cooperative, healthy appearing, comfortable, no acute distress and well developed, obese Orientation: Patient oriented x3 Limitations: No limitations Head: Normal to inspection Ears: Hearing grossly normal bilaterally Nose: Normal external nose present Face and sinus: Normal facial exam Eyes: Appearance normal, both eyes and all related structures Neck: Normal visual inspection and Yes full ROM Respiratory: Normal respiratory effort and able to speak in complete sentences. Clear to auscultation bilaterally Cardiovascular: Regular rate and rhythm. Normal S1 and S2 GI: Normal to inspection. Soft to palpation and nontender Skin: No rashes or lesions noted Neuro: Patient oriented x3 Extremities: Normal to inspection Results Plan The patient was advised to complete her overdue Pap smear and mammogram, with orders placed today to facilitate these screenings. For the gastrointestinal screening, arrangements are being made for her to see a specific provider of her choice to ensure compliance. Discussion Notes I discussed with the patient the importance of completing her Pap smear and mammogram, emphasizing the role of these screenings in early detection and prevention of potential health issues. We also talked about the need for a gastrointestinal screening and made arrangements for her to see a provider she prefers, to ensure she follows through with the appointment. Patient Instructions - Schedule and attend the Pap smear and mammogram appointments as soon as possible. - Follow up with the gastrointestinal screening appointment with the preferred provider. [facility] Medical History Physical exam Hx of migraine headaches Surgical History History of endometrial ablation History of gastric surgery History of placement of ear tubes H/O eye surgery History of mandibular surgery Hx of tonsillectomy Hx of adenoidectomy Hx of cholecystectomy Family History Father Non-Hodgkin lymphoma CVD (cardiovascular disease) Mother Alzheimer disease Sister History of breast cancer Paternal Grandfather Substance use disorder Paternal Uncle Substance use disorder Social History Household Members: Spouse Household Members Other:: son Housing: House Alcohol intake: current Alcohol intake frequency: holidays/special occasions only Patient Tobacco Use Status: Former Tobacco user e-Cigarette/Vaping Use: Never Used Second Hand Smoke Exposure: No Current occupational status: employed Current occupation: [employer] Current occupational exposures/hazards: No Sexual orientation: Straight/Heterosexual Gender identity: Female Cognitive needs: No Hearing needs: No Vision needs: No Female Reproductive History Menstrual Age of Menarche: 11 Questionnaire PHQ-9 Over the last 2 weeks, how often have you been bothered by any of the following problems? 1. Little interest or pleasure in doing things: not at all 2. Feeling down, depressed, or hopeless: not at all 3. Trouble falling or staying asleep, or sleeping too much: not at all 4. Feeling tired or having little energy: not at all 5. Poor appetite or overeating: not at all 6. Feeling bad about yourself - or that you are a failure or have let yourself or your family down: not at all 7. Trouble concentrating on things, such as reading the newspaper or watching television: not at all 8. Moving or speaking so slowly that other people could have noticed. Or the opposite - being so fidgety or restless that you have been moving around a lot more than usual: not at all 9. Thoughts that you would be better off or of hurting yourself in some way: not at all Total score: 0 Depression Screening Interpretation: Negative Depression Screening Done: Yes 86326 - PHQ-9 Billing: Yes Source: Developed by Drs. Dereje Gutierrez, Maribeth Pickens, Rigo Quinn and colleagues, with an educational violette from [employer]. Thrive Questionnaire Date Thrive assessed: 03/05/25 I am a: Patient What is your living situation today?: I have a steady place to live Within the past 12 months, did the food you bought not last and you didn't have the money to get more?: Often true Within the past 12 months, did you worry whether your food would run out before you got money to buy more?: Never true Do you have trouble paying for medicines?: No Do you have trouble getting transportation to medical appointments?: No Do you have trouble paying your heating and electricity bill?: No Do you have trouble taking care of your child, family member or friend?: No Do you have trouble with day-to-day activities such as bathing, preparing meals, shopping, managing finances, etc.?: No Are you currently unemployed and looking for a job?: Yes Are you interested in more education?: No Please select the resources that you would like help with: None Currently or been in a relationship where the following occur: No concerns reported THRIVE Score: 1 AUDIT C Alcohol Use Questionnaire (AUDIT-C) 1. How often do you have a drink containing alcohol?: 2-3 times a week 2. How many drinks containing alcohol do you have on a typical day when you are drinking?: 1 or 2 3. How often do you have six or more drinks on one occasion?: Less than monthly Total Score: 4 Score Reviewed/Action Taken: Yes REG-7 AMB Questionnaire REG-7 Date REG - 7 assessed: 03/08/25 Feeling nervous, anxious, or on edge: 0 = Not at all Not being able to stop or control worryin = Not at all Worrying too much about different things: 0 = Not at all Trouble relaxin = Not at all Being so restless that it is hard to sit still: 0 = Not at all Becoming easily annoyed or irritable: 0 = Not at all Feeling afraid as if something awful might happen: 0 = Not at all Total REG-7 score (0-4 normal; 5-9 mild; 10-14 moderate; 15-21 severe): 0 Source: Developed by Drs. Dereje Gutierrez, Maribeth Pickens, Rigo Quinn and colleagues, with an educational violette from [employer]. REG-7 Assessment Billing REG-7 Assessment Tool: REG-7 Assessment 67388 Physical exam (Primary Care) Vital Signs: Last Vital Signs Pulse 71 03/08/25 14:49 Resp 16 03/08/25 14:49 BP 138/92 H 03/08/25 14:49 Pulse Ox 97 03/08/25 14:49 Oxygen Delivery Method Room Air 03/08/25 14:49 BMI result Body Mass Index 37.4 Tobacco/Smoking Status: Tobacco use Status Tobacco use date assessed 03/08/25 03/08/25 14:54 Patient Tobacco Use Status Former Tobacco user 03/08/25 14:48 e-Cigarette/Vaping Use Never Used 03/08/25 14:48 PHQ-9: PHQ-9 Score PHQ-9: Total score 0 03/08/25 14:54 Depression Screening Interpretation: Negative Thrive Assessment: Date of Thrive Assessment Date Thrive assessed 03/05/25 03/08/25 14:48 Currently or been in a relationship where the following occur: No concerns reported Coding Level of Care Code Est Pt Prev Care 40-64y(93787) Diagnoses Physical exam Z00.00 Vitamin D deficiency E55.9 Screening for colon cancer Z12.11 Elevated BP without diagnosis of hypertension R03.0 Additional Codes REG-7 Assessment Billing - REG-7 Assessment Tool: REG-7 Assessment 21249 ([id number]) PHQ-9 - 57515 - PHQ-9 Billing: Yes ([id number]) Assessment & Plan Assessment & Plan (1) Physical exam: Code(s): Z00.00 - Encounter for general adult medical examination without abnormal findings Category: Medical (2) Vitamin D deficiency: Code(s): E55.9 - Vitamin D deficiency, unspecified Category: Medical (3) Screening for colon cancer: Code(s): Z12.11 - Encounter for screening for malignant neoplasm of colon Category: Medical (4) Elevated BP without diagnosis of hypertension: Code(s): R03.0 - Elevated blood-pressure reading, without diagnosis of hypertension Category: Medical Plan . Orders: Orders Complete Blood Count Auto Diff Today Z00.00 - Encounter for general adult medical examination without abnormal findings Comprehensive Magdalena. Panel Fast Today Z00.00 - Encounter for general adult medical examination without abnormal findings Lipid Panel Today Z00.00 - Encounter for general adult medical examination without abnormal findings Vitamin D 25-OH Total Today E55.9 - Vitamin D deficiency, unspecified MM screening mammo BI Today Z12.31 - Encounter for screening mammogram for malignant neoplasm of breast TSH reflex Free T4 Today Z00.00 - Encounter for general adult medical examination without abnormal findings UA CC w/rflx Micro + Cult Today Z00.00 - Encounter for general adult medical examination without abnormal findings Referrals Gastroenterology Referral Z12.11 - Encounter for screening for malignant neoplasm of colon
[2025-03-08 14:49] VITALS: BP 138/92; PULSE 71; RESP 16; O2SAT 97; BMI 37.4
--- OUTSIDE RECORDS SUMMARY | 2025-03-08 14:51 | XMS_ITS | Clinical Summary ---
Author Organization [facility] Address [address] [place] [address] Phone Care Team Providers Care E Commerce Architect Name Role Phone Fran Martinez MD Primary Care Provider +1- [phone] Allergies Active Allergy Reactions Criticality Noted Date Comments Meperidine 09/01/2017 Medications cholestyramine (QUESTRAN) 4 gram packet Take 1 packet by mouth 3 (three) times a day with meals. Active SUMAtriptan (IMITREX) 50 MG tablet Take 50 mg by mouth every 2 (two) hours as needed for migraine. Active SUMAtriptan succinate (IMITREX) 6 mg/0.5 mL PnIj INJECT 0.5ML INTRAMUSCULARLY 5 07/18/20 17 Active Active Problems No known active problems Social History Tobacco Use Types Packs/Day Years Used Date Smoking Tobacco: Former Cigarettes Q uit: 2008 Smokeless Tobacco: Never Alcohol Use Standard Drinks/Week Comments Yes 0 (1 standard drink = 0.6 oz pur e alcohol) socailly Education Answer Date Recorded Are you interested in more education? Not on willa e 11/21/2022 Are you concerned about learning? Not on file 11/21/2022 No 11/21/2022 No 11/21/2022 Digital Access Answer Date Recorded No 12/20/2022 No 12/20/2022 No 12/20/2022 Reliable internet access at home? Not on file 12/20/2022 Device with a working camera? Not on file Comments Unknown Sex and Gender Information Value Date Recorded Sex Assigned at Not on file Legal Sex Female 10:31 PM EDT Gender Identity Not on file Sexual Orientation Not on file Last Filed Vital Signs Vital Sign Reading Time Taken Comments Blood Pressure - - Pulse - - Temperature - - Respiratory Rate - - Oxygen Saturation - - Inhaled Oxygen Concentration - - Weight 80.3 kg (177 lb) 09/22/2017 11:52 AM EST Height 170.2 cm (5' 7 ) 09/22/2017 11:52 AM EST Body Mass Index 27.72 09/22/2017 11:52 AM EST Plan of Treatment Health Maintenance Due Date Last Done Comments LIPID PANEL 1973 DEPRESSION SCREENING 1985 SMOKING Hx and SMOKELESS TOBACCO SCREENING 1986 HEPATITIS C SCREENING 12/25/1991 HIV ONE-TIME SCREENING (18-6 5 YEARS) 12/25/1991 PAP SMEAR 1994 MAMMOGRAM 2013 COLOGUARD 2018 COLONOSCOPY 2018 COLORECTAL CANCER SCREENING 2018 FIT TEST 2018 FOBT 2018 SIGMOIDOSCOPY 2018 VIRTUAL COLONOSCOPY 2018 PNEUMOCOCCAL VACCINES (50+ years) (1 of 1 - PCV) 12/25/2023 ZOSTER VACCINES (1 of 2) 12/25/2023 COVID-19 VACCINE (3 - 2023-2 5 season) 2024 08/17/2020, 07/26/2020 Adult Td,Tdap Booster 2025 12/25/2015 HEPATITIS A VACCINES Aged Out No long er eligible based on patient's age to complete this topic HIB VACCINES Aged Out No longer eligi ble based on patient's age to complete this topic MENINGOCOCCAL VACCINES (ACWY) Aged Out No longer eligible based on patient's age to complete this topic MENINGOCOCCAL VACCINES (B) Aged Out N o longer eligible based on patient's age to complete this topic Medical Devices Not on file Insurance [facility] HMO POS HMO POS HMO POS HMO POS HMO POS HMO POS HMO POS HMO POS HMO POS Care Teams E Commerce Architect Relationship Specialty Start Date End Date Fran Martinez MD [address] [place] [id number] PCP - General Internal Medicine 09/01/17 Additional Source Comments The information contained in this document represents components of the legal health record. It is not the complete legal health record.[facility]
--- OUTSIDE RECORDS SUMMARY | 2025-03-08 14:51 | XMS_ITS | Patient Health Record ---
Author Organization [facility] Address [address] [place] [address] Care Team Providers Care Therapist Physical Name Role Phone JANELL KAN Primary Care Provider Dereje Julio [phone] Allergies Allergen (clinical drug ingredient) Drug/Non Drug Allergy documented on EMR Reaction Allergy Type Onset Date Status meperidine Demerol Unknown Drug Allergy Active caffeine / ergotamine Cafergot Unknown Drug Allergy Active some enviromental an d food allergies (uncoded) Unknown Allergy Active Reason For Referral No Information Medications Medication SIG (Take, Route, Fr equency, Duration) Notes Start Date End Date Status Tylenol prn 07/27/2024 07/27/2024 Active SUMAtriptan 6mg/0.5ml 07/27/2024 001 Active MoviPrep 100 GM Use as directed Oral ly once for 1 dose 09/21/2012 Active Problems Problem Type SNOMED Code ICD Code Onset Dates Problem Status W/U Status Risk Notes Problem IBS (irritable b owel syndrome) (564.1) Active confirmed Problem Computed tomography of abdomen abnormal (finding) (1765889344563 9107) Abnormal computed tomography of gastrointestinal tract (793.4) Active confirmed Plan Of Treatment Future Test Test Name Order Date COLONOSCOPY 09/21/2012 Insurance Providers Payer Name Payer Address Payer Phone Subscriber Number Group Number Insured Name Patient Relationship to Insured Coverage Start Date Coverage End Date [employer] [address] [address] [place] [address] [id number] NESHA IBARRA Self - patient is the insured Medical (General) History Medical History History ICD Code Denies [place],DM,CVA,Lung disease,renal dise ase Migraines Told of IBS-seen [...]
== END 2025-03-08 15:34 | disposition home or self-care (01) ==
LOC: HO.HMCC 14:44
PROVIDERS: PCP Nurse Practitioner Family; Visit Provider Nurse Practitioner Family
DX: Z00.00 Encounter for general adult medical examination without abnormal findings (principal); E55.9 Vitamin D deficiency, unspecified; Z12.11 Encounter for screening for malignant neoplasm of colon; R03.0 Elevated blood-pressure reading, without diagnosis of hypertension

== ENCOUNTER → 2025-03-08 14:44 | Outpatient (BNVA) | payer OTHER, SELFPAY | PROVIDERS: PCP Nurse Practitioner Family; Visit Provider Nurse Practitioner Family | DX: Z00.00 Encounter for general adult medical examination without abnormal findings (principal); E55.9 Vitamin D deficiency, unspecified; R03.0 Elevated blood-pressure reading, without diagnosis of hypertension; E66.9 Obesity, unspecified; Z68.37 Body mass index [BMI] 37.0-37.9, adult | CPT/HCPCS: 96127 ==

== ENCOUNTER 2025-03-17 08:19 | Outpatient (REF) | payer OTHER, SELFPAY ==
--- NOTE | ~2025-03-17 | MM_ITS ---
EXAMINATION: MM SCREENING DIGITAL BREAST TOMOSYNTHESIS, BILATERAL CLINICAL INFORMATION: Screening. Asymptomatic. COMPARISON: Mammography: Comparison is made with available priors TECHNIQUE: Digital breast mammography with tomosynthesis is performed in both the craniocaudal and mediolateral oblique views along with computer-aided detection (CAD). FINDINGS: There are scattered areas of fibroglandular density (ACR BI-RADS breast composition Category b). There are no significant masses, abnormal calcifications, or other abnormalities. MM/MM tomosynthesis screening BI IMPRESSION: No mammographic evidence of malignancy. ASSESSMENT: BI-RADS BI-RADS 1 - Negative RECOMMENDATION: Routine annual mammography screening. 1 year F/U This examination should not preclude the clinical evaluation of a suspicious palpable abnormality. This patient's information was entered into a reminder system with a target due date for their next mammogram. Electronically signed by: Mariola Hernandez DO 03/21/2025 12:52 PM EDT
--- OUTSIDE RECORDS SUMMARY | 2025-03-17 08:31 | XMS_ITS | Clinical Summary ---
Author Organization [facility] Address [address] [place] [address] Phone Care Team Providers Care Local Bulk Driver Name Role Phone Fran Martinez MD Primary Care Provider [phone]- [phone] Allergies Active Allergy Reactions Criticality Noted Date [...] topic Medical Devices Not on file Insurance [facility] HMO POS HMO POS HMO POS HMO POS HMO POS HMO POS HMO POS HMO POS HMO POS Care Teams Local Bulk Driver Relationship Specialty Start Date End Date Fran Martinez MD [address] [place] [id number] PCP - General Internal Medicine 09/01/17 Additional Source Comments The information contained in this document represents components of the legal health record. It is not the complete legal health record.[facility]
--- OUTSIDE RECORDS SUMMARY | 2025-03-17 08:31 | XMS_ITS | Patient Health Record ---
Author Organization [facility] Address [address] [place] [address] Care Team Providers Care Education Director Name Role Phone JANELL KAN Primary Care Provider Dereje Jluio [phone] Allergies Allergen (clinical drug ingredient) Drug/Non Drug [...] Problem Status W/U Status Risk Notes Problem Irritable bowel syndrome (63317870) IBS (irritable bowel syndrome) (564.1) Active confirmed Problem Computed tomography of abdomen abnormal (finding) (9048818166122 9107) Abnormal computed tomography of gastrointestinal tract (793.4) Active confirmed Plan Of Treatment Future Test Test Name Order Date COLONOSCOPY 09/21/2012 Insurance Providers Payer Name Payer Address Payer Phone Subscriber Number Group Number Insured Name Patient Relationship to Insured Coverage Start Date Coverage End Date [employer] [address] [address] [place] [address] [id number] NESHA IBARRA Self - patient is the insured Medical (General) History Medical History History ICD Code Denies [place],DM,CVA,Lung disease,renal dise ase Migraines Told of IBS-seen [...]
== END 2025-03-17 08:20 | disposition home or self-care (01) ==
LOC: HO.MAMMO 08:19
PROVIDERS: PCP Nurse Practitioner Family; Visit Provider Nurse Practitioner Family
DX: Z12.31 Encounter for screening mammogram for malignant neoplasm of breast (principal)
CPT/HCPCS: 77063; 77067

== ENCOUNTER → 2025-03-17 08:30 | Outpatient (BNV) | payer OTHER, SELFPAY | PROVIDERS: PCP Nurse Practitioner Family; Visit Provider Internal Medicine | DX: Z12.31 Encounter for screening mammogram for malignant neoplasm of breast (principal) | CPT/HCPCS: 77063; 77067 ==

== ENCOUNTER → 2025-03-20 09:11 | Outpatient (BNVA) | payer OTHER, SELFPAY | PROVIDERS: PCP Nurse Practitioner Family; Visit Provider Internal Medicine | DX: Z13.89 Encounter for screening for other disorder (principal) | CPT/HCPCS: 99213 ==

== ENCOUNTER 2025-03-22 11:30 | Outpatient (RCR) | payer OTHER, SELFPAY ==
--- NOTE | 2025-03-01 13:58 | MHC.OT.EP ---
[address] [phone] Occupational Therapy Plan of Care Patient Name: Geena Malone Date of Evaluation: 03/01/25 Diagnosis: R wrist pain Pain Location: ulnar wrist (+) ECU Pain Score: 5 Pain Scale Used: Numeric (0 - 10) Aggravating Factors: typing, gripping Alleviating Factors: ice Assessment: Pt is a 49 yr old R hand dominant female who reports pain in the ulnar side of her R Wrist which increases through out the week and work day. She reports a decrease of pain on Thursday morning which progressively worsens by Thursday. She also reports decreased strength of her dominant hand. She went to work connections and they placed her in a wrist cock up, but pt reports it is too bulky and is causing pain in the shoulder and elbow so she is not always complaint w/ wear. 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 She would benefit from skilled OT Therapy to address these deficits and RPLOF. Frequency and Duration: The patient will be seen Short Term Goals: Pt will be complaint w/ modifying behaviors/ jt. 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 Thank you once again for your referral.
== END 2025-07-07 15:05 | disposition home or self-care (01) ==
LOC: HO.OT 11:30
PROVIDERS: PCP Nurse Practitioner Family; Visit Provider Physician Assistant Medical
DX: M25.531 Pain in right wrist (principal)
CPT/HCPCS: 29125; 97035; 97110; 97140; 97165; 97535; 97760

== ENCOUNTER → 2025-03-31 09:06 | Outpatient (BNVA) | payer OTHER, SELFPAY | PROVIDERS: PCP Nurse Practitioner Family; Visit Provider Internal Medicine | DX: Z13.89 Encounter for screening for other disorder (principal) | CPT/HCPCS: 99213 ==

== ENCOUNTER → 2025-04-14 08:20 | Outpatient (BNVA) | payer OTHER, SELFPAY | PROVIDERS: PCP Nurse Practitioner Family; Visit Provider Internal Medicine | DX: Z13.89 Encounter for screening for other disorder (principal) | CPT/HCPCS: 99213 ==

== ENCOUNTER 2025-05-09 08:38 | Outpatient (REF) | payer OTHER, SELFPAY ==
--- NOTE | 2025-05-09 08:41 | EMG_ITS ---
Chief complaint: Pain and numbness of the right hand Reason for referral: R20.0 Right hand paresthesia Referred by: LAURA Villarreal Procedure done: Right upper extremity NCS / EMG Right median and ulnar motor studies were performed. Right median and ulnar mixed sensory studies were performed and radial sensory study was performed. Right median and lateral antecubital brachial sensory studies were performed. EMG needle examination was performed Right median motor distal latency was slightly prolonged. Right median mixed distal latencies was borderline prolonged with intact conduction velocity. 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
--- OUTSIDE RECORDS SUMMARY | 2025-05-09 09:02 | XMS_ITS | Patient Health Record ---
Author Organization [facility] Address [address] [place] [address] Care Team Providers Care Cardiopulmonary Technologist Name Role Phone JANELL KAN Primary Care Provider Dereje Juloi [phone] Allergies Allergen (clinical drug ingredient) Drug/Non Drug [...] 100 GM Use as directed Oral ly once; Duration: 1 dose 09/21/2012 Active Problems Problem Type SNOMED Code ICD Code Onset Dates Problem Status W/U Status Risk Notes Problem Irritable bowel syndrome (74472942) IBS (irritable bowel syndrome) (564.1) Active confirmed Problem Computed tomography of abdomen abnormal (finding) (5089387912747 9107) Abnormal computed tomography of gastrointestinal tract (793.4) Active confirmed Plan Of Treatment Future Test Test Name Order Date COLONOSCOPY 09/21/2012 Insurance Providers Payer Name Payer Address Payer Phone Subscriber Number Group Number Insured Name Patient Relationship to Insured Coverage Start Date Coverage End Date [employer] [address] [address] [place] [address] [id number] NESHA IBARRA Self - patient is the insured Medical (General) History Medical History History ICD Code Denies [place],DM,CVA,Lung disease,renal dise ase Migraines Told of IBS-seen [...]
--- OUTSIDE RECORDS SUMMARY | 2025-05-09 09:02 | XMS_ITS | Clinical Summary ---
Author Organization [facility] Address [address] [place] [address] Phone Care Team Providers Care Drum Sander Offbearer Name Role Phone Fran Martinez MD Primary Care Provider +1- [phone] Allergies Active Allergy Reactions Criticality Noted Date [...] 12/25/2023 ZOSTER VACCINES (1 of 2) 12/25/2023 INFLUENZA VACCINE (#1) 2025 COVID-19 VACCINE (3 - 2024-2 6 season) 2025 08/17/2020, 07/26/2020 Adult Td,Tdap Booster 2025 12/25/2015 RSV VACCINE (1 - 1-dose 75+ series) 2048 HEPATITIS A VACCINES Aged Out No long [...] topic Medical Devices Not on file Insurance [facility] HMO POS HMO POS HMO POS HMO POS HMO POS HMO POS HMO POS HMO POS HMO POS Care Teams Drum Sander Offbearer Relationship Specialty Start Date End Date Fran Martinez MD [address] [place] [id number] PCP - General Internal Medicine 09/01/17 Additional Source Comments The information contained in this document represents components of the legal health record. It is not the complete legal health record.[facility]
== END 2025-05-09 08:39 | disposition home or self-care (01) ==
LOC: HO.NEURO 08:38
PROVIDERS: PCP Nurse Practitioner Family
DX: R20.0 Anesthesia of skin (principal); R20.2 Paresthesia of skin; M79.641 Pain in right hand
CPT/HCPCS: 95886; 95910

== ENCOUNTER → 2025-05-09 08:41 | Outpatient (BNV) | payer OTHER, SELFPAY | PROVIDERS: PCP Nurse Practitioner Family; Visit Provider Psychiatry & Neurology Neurology | DX: G56.01 Carpal tunnel syndrome, right upper limb (principal) | CPT/HCPCS: 95886; 95909 ==

== ENCOUNTER → 2025-05-17 10:04 | Outpatient (BNVA) | payer OTHER, SELFPAY | PROVIDERS: PCP Nurse Practitioner Family; Visit Provider Internal Medicine | DX: Z13.89 Encounter for screening for other disorder (principal) | CPT/HCPCS: 99213 ==

== ENCOUNTER 2025-06-07 09:20 | Outpatient (AMB) | payer OTHER, SELFPAY ==
[2025-06-07 09:33] VITALS: BMI 37.4
--- NOTE | 2025-06-07 09:33 | A.OFFVIS_ITS ---
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 Patient reports today she does not have any numbness or tingling however she is having pain on the ulnar aspect of the right hand described as a constant burning . She feels like her right small finger is very sensitive to the touch. She also complains of burning on the volar aspect of the wrist. Patient has been to Occupational Therapy without relief. Patient also wore a splint at night and during work which made the worse. Denies any prior injuries or surgeries to the right hand. Impression 05/09/25: Mild right median neuropathy across carpal tunnel Allergies doxycycline Allergy (Mild, Verified 06/07/25 09:35) n/v caffeine (From CAFERGOT) Allergy (Unknown, Verified 06/07/25 09:35) VOMITING cetirizine (From ZYRTEC) Adverse Reaction (Unknown, Verified 06/07/25 09:35) RAGE ergotamine (Cafergot) Adverse Reaction (Unknown, Verified 06/07/25 09:35) nausea and vomiting meperidine (Demerol) Adverse Reaction (Unknown, Verified 06/07/25 09:35) nausea and vomiting From CAFERGOT Allergy (Unknown, Uncoded 06/07/25 09:35) VOMITING From DEMEROL Allergy (Unknown, Uncoded 06/07/25 09:35) VOMITING HPI 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 Patient reports today she does not have any numbness or tingling however she is having pain on the ulnar aspect of the right hand described as a constant burning . She feels like her right small finger is very sensitive to the touch. She also complains of burning on the volar aspect of the wrist. Patient has been to Occupational Therapy without relief. Patient also wore a splint at night and during work which made the worse. Denies any prior injuries or surgeries to the right hand. Impression 05/09/25: Mild right median neuropathy across carpal tunnel PFSH Medical History Physical exam Hx of migraine headaches Surgical History History of endometrial ablation History of gastric surgery History of placement of ear tubes H/O eye surgery History of mandibular surgery Hx of tonsillectomy Hx of adenoidectomy Hx of cholecystectomy Family History Father Non-Hodgkin lymphoma CVD (cardiovascular disease) Mother Alzheimer disease Sister History of breast cancer Paternal Grandfather Substance use disorder Paternal Uncle Substance use disorder Social History Household Members: Spouse Household Members Other:: son Housing: House Alcohol intake: current Alcohol intake frequency: holidays/special occasions only Patient Tobacco Use Status: Former Tobacco user e-Cigarette/Vaping Use: Never Used Second Hand Smoke Exposure: No Current occupational status: employed 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 Good APB muscle firing and good finger cross. Vascular: Capillary refill brisk. Pain: Tenderness to palpation over the ulnar aspect of the volar right wrist Pain with active flexion of the right wrist and passive extension ROM: Patient can make a fist and extend all their digits. Skin: No lacerations or abrasions noted. General: No ecchymosis. No erythema or evidence of infection. Assessment & Plan Assessment & Plan (1) Flexor carpi ulnaris tendinitis: Code(s): M77.8 - Other enthesopathies, not elsewhere classified Category: Medical (2) Right carpal tunnel syndrome: Code(s): G56.01 - Carpal tunnel syndrome, right upper limb Category: Medical Plan 1. Right carpal tunnel syndrome Symptoms intermittent, daily, worse at night No numbness, only pain and weakness Patient is educated about this condition Patient is educated about the typical treatment course At this time, patient is educated about carpal tunnel release, but states she would like to not get signed up immediately at this time, stating she would like to proceed with surgery in July or August Therefore, patient is booked an appointment early in the new year for discussion of carpal tunnel release 2. Right FCU tendinitis Patient is educated about this condition Patient is educated about the treatment options available As the patient has already tried therapy and bracing, I did recommend a steroid injection at this time, but the patient declines, stating that she will ?never have another steroid injection in her life? Patient is educated that beyond this, our options are quite limited, and she should continue with bracing and the therapy exercises provided for her Patient understands this and is amenable to this plan Coding Level of Care Code New Pt Level 3 (13989) Diagnoses Flexor carpi ulnaris tendinitis M77.8 Right carpal tunnel syndrome G56.01
--- OUTSIDE RECORDS SUMMARY | 2025-06-07 10:15 | XMS_ITS | Clinical Summary ---
Author Organization [facility] Address [address] [place] [id number] Phone Care Team Providers Care Manager Star Name Role Phone Fran Martinez MD Primary Care Provider [phone] Allergies Active Allergy Reactions Criticality Noted Date [...] on patient's age to complete this topic IPV VACCINES Aged Out No longer eligi ble based on patient's age to complete this topic MENINGOCOCCAL VACCINES (ACWY) Aged Out No longer eligible based on patient's age to complete this topic MENINGOCOCCAL VACCINES (B) Aged Out N o longer eligible based on patient's age to complete this topic Medical Devices Not on file Insurance [facility] H[facility] POS [place] [address] [place] [address] HMO [place] [address] [place] [address] HMO POS HMO POS HMO POS HMO POS Care Teams Manager Star Relationship Specialty Start Date End Date Fran Martinez MD [address] [place] [id number] PCP - General Internal Medicine 09/01/17 Additional Source Comments The information contained in this document represents components of the legal health record. It is not the complete legal health record.[facility]
--- OUTSIDE RECORDS SUMMARY | 2025-06-07 10:15 | XMS_ITS | Patient Health Record ---
Author Organization [facility] Address [address] [place] [address] Care Team Providers Care Scrap Hoist Operator Name Role Phone JANELL KAN Primary Care Provider Dereje Julio [phone] Allergies Allergen (clinical drug ingredient) Drug/Non Drug [...] Status Risk Notes Problem Irritable bowel syndrome (15840025) IBS (irritable bowel syndrome) (564.1) Active confirmed Problem Computed tomography of abdomen abnormal (finding) (8801359641357 9107) Abnormal computed tomography of gastrointestinal tract (793.4) Active confirmed Plan Of Treatment Future Test Test Name Order Date COLONOSCOPY 09/21/2012 Insurance Providers Payer Name Payer Address Payer Phone Subscriber Number Group Number Insured Name Patient Relationship to Insured Coverage Start Date Coverage End Date [employer] [address] [address] [place] [address] [id number] NESHA IBARRA Self - patient is the insured Medical (General) History Medical History History ICD Code Denies [place],DM,CVA,Lung disease,renal dise ase Migraines Told of IBS-seen [...]
== END 2025-06-07 10:06 | disposition home or self-care (01) ==
LOC: HO.HOS 09:21
PROVIDERS: PCP Nurse Practitioner Family
DX: M67.833 Other specified disorders of tendon, right wrist (principal); G56.01 Carpal tunnel syndrome, right upper limb
CPT/HCPCS: 99203

== ENCOUNTER → 2025-06-07 09:20 | Outpatient (BNVA) | payer OTHER, SELFPAY | PROVIDERS: PCP Nurse Practitioner Family | DX: R20.2 Paresthesia of skin (principal); R20.0 Anesthesia of skin; M77.8 Other enthesopathies, not elsewhere classified; G56.01 Carpal tunnel syndrome, right upper limb | CPT/HCPCS: 99202 ==

== ENCOUNTER → 2025-06-14 08:54 | Outpatient (BNVA) | payer OTHER, SELFPAY | PROVIDERS: PCP Nurse Practitioner Family; Visit Provider Internal Medicine | DX: Z13.89 Encounter for screening for other disorder (principal) | CPT/HCPCS: 99213 ==

== ENCOUNTER 2025-07-13 08:01 | Outpatient (REF) | payer OTHER, SELFPAY ==
--- NOTE | ~2025-07-13 | XR_ITS ---
EXAMINATION: XR CHEST CLINICAL INFORMATION: R05.9 - Cough, unspecified COMPARISON: X-ray 03/23/2023 TECHNIQUE: 2 views of the chest were obtained. FINDINGS: The cardiomediastinal silhouette is within normal limits. The lungs are well expanded. There is no focal consolidation, edema, or effusion. No pneumothorax. No acute osseous abnormality. XR/XR chest 2V IMPRESSION: No acute cardiopulmonary process Electronically signed by: Rikki Ricketts MD 07/13/2025 09:04 AM ADELE
[2025-07-13 12:59] LABS: Resp Syncy Virus RNA Qual PCR NEGATIVE (Negative); SARS COV2 PCR INHOUSE NEGATIVE (Negative)
== END 2025-07-13 08:02 | disposition home or self-care (01) ==
LOC: HO.HMGCX 08:01
PROVIDERS: PCP Nurse Practitioner Family; Visit Provider Physician Assistant Medical
DX: R05.9 Cough, unspecified (principal); R09.89 Other specified symptoms and signs involving the circulatory and respiratory systems; Z13.89 Encounter for screening for other disorder; R09.81 Nasal congestion; R52 Pain, unspecified
CPT/HCPCS: 71046; 87637; 87880

== ENCOUNTER 2025-07-13 08:01 | Outpatient (AMB) | payer OTHER, SELFPAY ==
[2025-07-13 08:05] VITALS: BP 140/92; PULSE 74; TEMP 36.8; O2SAT 99; BMI 37.6
--- NOTE | 2025-07-13 08:05 | MHC.OFFWIV ---
Intake Vital Signs 07/13/25 08:05 Height 5 ft 7 in Weight 240 lb BMI 37.6 BP 140/92 H Blood Pressure Location Lt brachial Position Sitting Pulse 74 Pulse Source Pulse Oximeter Temp 98.2 F Temp Source Oral Pulse Oximetry (%) 99 Oxygen Delivery Method Room Air Intake Visit Reasons: EP No voice, sore throat, cough Intake Note: Patient presents c/o cough, loss of voice, chest/sinus congestion, body aches, chills x10 days. Patient Tobacco Use Status: Former Tobacco user Allergies doxycycline Allergy (Mild, Verified 07/13/25 08:09) n/v caffeine (From CAFERGOT) Allergy (Unknown, Verified 07/13/25 08:09) VOMITING cetirizine (From ZYRTEC) Adverse Reaction (Unknown, Verified 07/13/25 08:09) RAGE ergotamine (Cafergot) Adverse Reaction (Unknown, Verified 07/13/25 08:09) nausea and vomiting meperidine (Demerol) Adverse Reaction (Unknown, Verified 07/13/25 08:09) nausea and vomiting From CAFERGOT Allergy (Unknown, Uncoded 07/13/25 08:09) VOMITING From DEMEROL Allergy (Unknown, Uncoded 07/13/25 08:09) VOMITING Do you need a note to return to daycare/school/sports/work: No HPI HPI Comments History of Present Illness Details History - The patient is a 49-year-old female presenting with symptoms of an upper respiratory infection. - Her symptoms began approximately 10 days ago with a sore throat and exhaustion. - She subsequently developed a productive cough with green sputum, ear pain, and nasal congestion. - The patient reports coughing when taking a deep breath. - She states that she has lost her voice. - She has also experienced body aches and chills, which are now less severe. - She has attempted to self-treat her symptoms with Tylenol and one dose of a cough medicine. - The patient denies a history of asthma. - Her is also ill, and she has likely been exposed to sick individuals at her workplace. - She denies fever, chills, chest pain, SOB, abd pain, n/v/d. Physical Exam General: Cooperative, healthy appearing, comfortable and no acute distress Orientation/consciousness: Patient oriented x3 Limitations: No limitations Head: Normal to inspection Ears: Hearing grossly normal bilaterally, external ears normal and TM's normal bilaterally Nose: Normal external nose present, normal nares present, and no nasal discharge present. Face and sinus: Sinuses nontender to palpation. Mouth: Normal oral and palatal mucosa present and moist mucous membranes noted. Throat: Tonsils normal. Uvula is midline. Posterior oropharynx with erythema and no exudates. Eyes: Appearance normal, both eyes and all related structures Neck: Normal visual inspection, full ROM. No lymphadenopathy noted. Respiratory: Diminished breath sounds. Clear to auscultation bilaterally. Normal respiratory effort, able to speak in complete sentences. No respiratory distress, not tachypneic, no tripod positioning and no use of accessory muscles. Cardiovascular: Regular rate and rhythm. Normal S1 and S2. No m/r/g noted. Skin: No rashes or lesions noted Patient was informed and verbally consented to the use of an ambient scribe for clinic note documentation during this visit FORMERLY [facility], [facility] Medical History Physical exam Hx of migraine headaches Surgical History History of endometrial ablation History of gastric surgery History of placement of ear tubes H/O eye surgery History of mandibular surgery Hx of tonsillectomy Hx of adenoidectomy Hx of cholecystectomy Family History Father Non-Hodgkin lymphoma CVD (cardiovascular disease) Mother Alzheimer disease Sister History of breast cancer Paternal Grandfather Substance use disorder Paternal Uncle Substance use disorder Social History Household Members: Spouse Household Members Other:: son Housing: House Alcohol intake: current Alcohol intake frequency: holidays/special occasions only Patient Tobacco Use Status: Former Tobacco user e-Cigarette/Vaping Use: Never Used Second Hand Smoke Exposure: No Current occupational status: employed 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, 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[place] Current occupational exposures/hazards: No Sexual orientation: Straight/Heterosexual Gender identity: Female Cognitive needs: No Hearing needs: No Vision needs: No Female Reproductive History Menstrual Age of Menarche: 11 Review of Systems Const All systems reviewed & are unremarkable except as noted in HPI and below Physical Exam Vital Signs: Last Vital Signs Temp 98.2 F 07/13/25 08:05 Pulse 74 07/13/25 08:05 BP 140/92 H 07/13/25 08:05 Pulse Ox 99 07/13/25 08:05 Oxygen Delivery Method Room Air 07/13/25 08:05 BMI result Body Mass Index 37.6 Results AMB Rapid Strep AMB Rapid Strep Negative Last Edit by Risa Darden CMA on 07/13/25 08:31 Results Reviewed Results Reviewed: Laboratory Last Values Strep Scn Rapid Clinic Negative 07/13/25 08:30 will review her CXR in the office Assessment & Plan Assessment & Plan (1) URI with cough and congestion: Code(s): J06.9 - Acute upper respiratory infection, unspecified Plan Most likely Acute Bronchitis vs URI vs covid vs flu vs RSV vs CAP rapid was negative plan - A chest X-ray will be performed to rule out pneumonia. - A swab for COVID-19, influenza, and RSV will be collected. - Azithromycin (Z-Jeferson) will be prescribed to empirically treat a potential bacterial superinfection. - Benzonatate (Tessalon Perles) will be prescribed for cough suppression. - Prophylactic medication for a yeast infection will be prescribed, to be taken after completing the course of antibiotics. - Await results of the chest X-ray and swabs to guide further management. - will call with the results - follow up with PCP Orders: Orders AMB Rapid Strep Screen Today Z13.9 - Encounter for screening, unspecified XR chest 2V Today R05.9 - Cough, unspecified SARS-CoV2/FLU/RSV Today R09.89 - Other specified symptoms and signs involving the circulatory and respiratory systems Medications: New azithromycin For 250 mg dose pack: take 500 mg today (day 1), then 250 mg for 4 days (days 2-5) PO 6 tabs 0RF benzonatate 100 mg PO bid-tid PRN 21 caps 0RF Cough 7 days fluconazole may repeat second dose 72 hrs after first dose if symptoms persist 150 mg PO Q3D 2 tabs 0RF Coding Level of Care Code Est Pt Level 3 (01374) Diagnoses URI with cough and congestion J06.9
--- OUTSIDE RECORDS SUMMARY | 2025-07-13 08:07 | XMS_ITS | Patient Health Record ---
Author Organization [facility] Address [address] [place] [address] Care Team Providers Care Pen And Pencil Repairer Name Role Phone JANELL KAN Primary Care Provider Dereje Julio [phone] Allergies Allergen (clinical drug ingredient) Drug/Non Drug Allergy documented on EMR Reaction Allergy Type Onset Date Status some enviromental an d food allergies (uncoded) Unknown Allergy Active caffeine / ergotamine Cafergot Unknown Drug Allergy Active meperidine Demerol Unknown Drug Allergy Active Reason For Referral No Information Medications Medication SIG (Take, Route, Frequency, Duration) Notes Start Date End Date Status Tylenol prn Active SUMAtriptan 6mg/0.5ml 07/27/1900 901 Active MoviPrep 100 GM Solution Reconstituted Use as directed Orally once; Duration: 1 dose 09/21/2012 Active Social History Social History Additional Details Category Social Info Options Details Miscellaneous: Marital status: wi th 2 children 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 alcohol Problems Problem Type SNOMED Code ICD Code Onset Dates Problem Status W/U Status Risk Notes Problem Irritable bowel syndrome (61422428) IBS (irritable bowel syndrome) (564.1) Active confirmed Problem Computed tomography of abdomen abnormal (finding) (2424489535194 9107) Abnormal computed tomography of gastrointestinal tract (793.4) Active confirmed Plan Of Treatment Future Test Test Name Order Date COLONOSCOPY 09/21/2012 Insurance Providers Payer Name Payer Address Payer Phone Subscriber Number Group Number Insured Name Patient Relationship to Insured Coverage Start Date Coverage End Date [employer] [address] [address] [place] [address] [id number] NESHA IBARRA Self - patient is the insured Medical (General) History Medical History History ICD Code Denies [place],DM,CVA,Lung disease,renal dise ase Migraines Told of IBS-seen by Dr. Osuna-never had a colonscopy nor flex sig Told of neg. labs for celiac disease Hospitalized in 07/2012 for a cute diarrhea and N/V--CT showed a colitis --had been on NSAIDs Surgical History Surgery Date(Month/Year) tonsillectomy and adenoidectomy 1978 cholecystectomy 1998 TMJ surgery/reconstruction [id number] eardrum repair 1989 ear tubes eyelid repair 1975
== END 2025-07-13 08:46 | disposition home or self-care (01) ==
PROVIDERS: PCP Nurse Practitioner Family; Visit Provider Physician Assistant Medical
DX: J06.9 Acute upper respiratory infection, unspecified (principal); Z13.9 Encounter for screening, unspecified

== ENCOUNTER → 2025-07-13 08:49 | Outpatient (BNV) | payer OTHER, SELFPAY | PROVIDERS: PCP Nurse Practitioner Family; Visit Provider Radiology Diagnostic Ultrasound | DX: R05.9 Cough, unspecified (principal) | CPT/HCPCS: 71046 ==